=== PATIENT | female | born 1950 | race American Indian/Alaskan Native ===

== ENCOUNTER 2016-12-08 10:32 | Inpatient (IN) | payer MEDICARE ==
--- NOTE | 2016-12-08 10:41 | C.PDOC ---
History Of Present Illness 66 y/o female pmhx HTN, old CVA with no residual deficits presents to the ED with complains of new onset right sided weakness and slurred speech since 0945 this am. Pt woke up at baseline. Pt denies recent trauma, headache, fever, any pain, SOB, vomiting or any other complaints. Family at bedside. Time Seen by Provider: 12/08/16 10:35 Chief Complaint (Nursing): Weakness/Neurological Deficit History Per: Patient History/Exam Limitations: no limitations Onset/Duration Of Symptoms: Mins Current Symptoms Are (Timing): Still Present Fall Associated With With Symptoms: No Recent travel outside of the [place]: No - Symptoms Of CVA Associated Symptoms: Impaired Speech Character Of Deficits: Right: Weakness Recent Head Trauma: No Past Medical History Reviewed: Historical Data, Nursing Documentation, Vital Signs Vital Signs: Last Vital Signs Temp 98.1 F 12/12/16 07:25 Pulse 65 12/12/16 08:00 Resp 18 12/12/16 07:25 BP 138/83 12/12/16 09:58 Pulse Ox 100 12/12/16 07:25 - Medical History PMH: Anxiety, CVA, Fractures, HTN, Hypercholesterolemia Surgical History: Appendectomy - [facility] Procedures CLOSED RED-INT FIX FEMUR (07/16/14) OCCUPATIONAL THERAPY (07/18/14) PHYSICAL THERAPY NEC (07/18/14) RECREATIONAL THERAPY (07/18/14) Family History: States: Unknown Family Hx - Social History Hx Tobacco Use: Yes Hx Alcohol Use: No (Drinks beer 40oz/week) Hx Substance Use: No - Immunization History Hx Tetanus Toxoid Vaccination: No Hx Influenza Vaccination: No Hx Pneumococcal Vaccination: No Review Of Systems Except As Marked, All Systems Reviewed And Found Negative. Constitutional: Negative for: Fever Cardiovascular: Negative for: Chest Pain Respiratory: Negative for: Shortness of Breath Gastrointestinal: Negative for: Vomiting Neurological: Positive for: Weakness (right sided), Change in Speech. Negative for: Headache Physical Exam - Physical Exam Appears: Non-toxic Skin: Normal Color, Warm, Dry Head: Atraumatic, Normacephalic Eye(s): bilateral: Normal Inspection, PERRL, EOMI Nose: Normal Throat: Normal Neck: Normal Cardiovascular: Rhythm Regular Respiratory: Normal Breath Sounds Gastrointestinal/Abdominal: Normal Exam Back: Normal Inspection Extremity: Normal ROM Neurological/Psych: Oriented x3, No Normal Speech, Normal Cognition, Normal Cranial Nerves, No Cerebellar Signs, No Normal Motor, Normal Sensation, Other (( +)slurred speech) ED Course And Treatment - Laboratory Results Result Diagrams: 12/12/16 06:13 12/12/16 06:13 ECG: Interpreted By Me, Viewed By Me ECG Rhythm: Sinus Rhythm Interpretation Of ECG: No ST/T wave changes Rate From EC (BPM) O2 Sat by Pulse Oximetry: 98 (on room air) Pulse Ox Interpretation: Normal - CT Scan/US CT head Other Rad Studies (CT/US): Read By Radiologist, Radiology Report Reviewed CT/US Interpretation: Accession No. : [id number]. Patient Name / ID : AMAURY JJ / [id number]. Exam Date : 12/08/2016 10:43:55 ( Approved ). Study Comment : Sex / Age : F / 66Y. Creator : Modesta Farr MD. Dictator : Modesta Farr MD. Cake Tester : Operations Program Manager : Modesta Farr MD. Approver2 : Report Date : 12/08/2016 11:01:11. My Comment : . PROCEDURE: CT HEAD WITHOUT CONTRAST. HISTORY: Code Stroke. COMPARISON : Noncontrast head CT performed 03/05/14, brain MRI without contrast performed . TECHNIQUE: Axial computed tomography images were obtained through the head/brain without intravenous contrast. Radiation dose: Total exam DLP = 1032.32 mGy-cm. FINDINGS: Streak artifact obscures evaluation of the skullbase. BRAIN: Diffuse atrophy with prominence of the ventricles and sulci noted. No mass effect or edema. 3 mm right hyperdense focus centrum semiovale, punctate hemorrhage is not excluded. Left basal ganglia and bilateral thalamic lacunar infarcts. Ischemic changes re-identified within the dinorah. Moderate scattered periventricular and subcortical white matter hypodensities, which are nonspecific, but often seen with chronic microvascular ischemic disease. VENTRICLES: No hydrocephalus. CALVARIUM: Unremarkable. PARANASAL SINUSES: Unremarkable as visualized. No significant inflammatory changes. MASTOID AIR CELLS: Unremarkable as visualized. No inflammatory changes. OTHER FINDINGS: None. IMPRESSION: 3 mm right centrum semiovale hyperdense focus, punctate hemorrhage is not excluded. If indicated, recommend 6-12 hour follow-up to assess for stability. Left basal ganglia and bilateral thalamic lacunar infarcts. Ischemic changes re-identified within the dinorah. Moderate scattered nonspecific white matter changes. Please note that MRI with diffusion imaging is more sensitive in the detection of acute ischemic event. Findings discussed with Dr. Silva on 12/08/16 at 10:57 a.m. NIHSS Stroke Scale - How Severe is the Stoke Level of Consciousness: 1=Drowsy LOC to Questions: 0=Both comments correct LOC to commands: 0=Obeys both correctly Best Gaze: 0=Normal Visual: 0=No visual loss Facial: 1=Minor asymmetry Motor Arm - Left: 0=No drift Motor Arm - Right: 3=No effort against gravity (falls immediately) Motor Leg - Left: 1=Drift before 5 sec Motor Leg - Right: 2=Falls before 5 sec Limb Ataxia: 0=Absent Sensory: 0=Normal Best Language: 1=Mild to moderate aphasia Dysarthia: 1=Mild to moderate slurring Extinction & Inattention (Neglect): 0=Normal, no object Score: 10 Severity Of Stroke: 5-15= Moderate Stroke rTPA Inclusion/Exclusion - Refusal of Treatment Patient Refused Treatment: No - Inclusion Criteria for Altepase Patient is 18 years or Older: Yes The Clinical Diagnosis of Ischemic Stroke That is Causing a Potentially Disabling Neurological Deficit: No Time of Onset is Well Established to be Less Than 270 Minute Before Treatment Would Begin: Yes Risk/Benefit Discussed With Patient/Family Member Present: Yes - Exclusion Criteria for Altepase Uncontrolled Hypertension at Time of Treatment (Systolic BP above 185 or Diastolic BP above 110 mmHg): Yes Less Than 3 Months Had a Recent: Intracranial Medical Decision Making Medical Decision Making: r/o cva- labs imaging pending Plan: * CT head, CXR * EKG * labs * Iv fluids * UA 1145: noted head ct. case discussed with dr ma- not tpa candidate given possiblity of intracranial bleed. also discussed with dr jacques, no surgical eval, recommend neuro eval. dr hagan accepts to tele. pt also later endrosed to dr hagan that symptoms started 730 am. Disposition - Disposition Disposition: HOSPITALIZED Disposition Time: 15:16 Condition: FAIR - Clinical Impression Clinical Impression: Stroke - Scribe Statement The provider has reviewed the documentation as recorded by the Peyton Vitale Provider Attestation: All medical record entries made by the Peyton were at my direction and personally dictated by me. I have reviewed the chart and agree that the record accurately reflects my personal performance of the history, physical exam, medical decision making, and the department course for this patient. I have also personally directed, reviewed, and agree with the discharge instructions and disposition. Decision To Admit - Pt Status Changed To: Hospital Disposition Of: Inpatient - Admit Certification Admit to Inpatient:: After my assessment, the patient will require hospitalization for at least two midnights. This is because of the severity of symptoms shown, intensity of services needed, and/or the medical risk in this patient being treated as an outpatient. - InPatient: Physician Admission Certification: I certify that this patient requires 2 or more midnights of care for the following reason:: pt with possible stroke, and intracranial bleed. needs mri, neruo eval. - . Bed Request Type: Telemetry Admitting Physician: Lazarus Ray Patient Diagnosis: Stroke
--- NOTE | 2016-12-08 11:04 | CT ---
PROCEDURE: CT HEAD WITHOUT CONTRAST. HISTORY: Code Stroke COMPARISON: Noncontrast head CT performed 03/05/14, brain MRI without contrast performed 03/06/14 TECHNIQUE: Axial computed tomography images were obtained through the head/brain without intravenous contrast. Radiation dose: Total exam DLP = 1032.32 mGy-cm. FINDINGS: Streak artifact obscures evaluation of the skullbase. BRAIN: Diffuse atrophy with prominence of the ventricles and sulci noted. No mass effect or edema. 3 mm right hyperdense focus centrum semiovale, punctate hemorrhage is not excluded. Left basal ganglia and bilateral thalamic lacunar infarcts. Ischemic changes re-identified within the dinorah. Moderate scattered periventricular and subcortical white matter hypodensities, which are nonspecific, but often seen with chronic microvascular ischemic disease. VENTRICLES: No hydrocephalus. CALVARIUM: Unremarkable. PARANASAL SINUSES: Unremarkable as visualized. No significant inflammatory changes. MASTOID AIR CELLS: Unremarkable as visualized. No inflammatory changes. OTHER FINDINGS: None. IMPRESSION: 3 mm right centrum semiovale hyperdense focus, punctate hemorrhage is not excluded. If indicated, recommend 6-12 hour follow-up to assess for stability. Left basal ganglia and bilateral thalamic lacunar infarcts. Ischemic changes re-identified within the dinorah. Moderate scattered nonspecific white matter changes. Please note that MRI with diffusion imaging is more sensitive in the detection of acute ischemic event. Findings discussed with Dr. Silva on 12/08/16 at 10:57 a.m.
[2016-12-08] MEDS ORDERED: niCARdipine IV 25 MG in Sodium Chloride 0.9% 240 ML IV SCH (11:15)
[2016-12-08 11:47] LABS: BASO # 0.1 K/uL (0.0-0.2); EOS # 0.1 K/uL (0.0-0.7); EOS % 1.4 % (0.0-4.0); HEMATOCRIT 40.3 % (34.0-47.0); LYMPH # 2.5 K/uL (1.0-4.3); LYMPH % 30.7 % (20.0-40.0); MEAN CORPUSCULAR HEMOGLOBIN 31.3 pg (27.0-31.0); MEAN CORPUSCULAR HGB CONC 34.4 g/dL (33.0-37.0); MEAN PLATELET VOLUME 8.5 fL (7.2-11.7); MONO # 0.5 K/uL (0.0-0.8); MONO % 6.7 % (0.0-10.0); NRBC % 0.1 % (0.0-2.0); RED CELL DISTRIBUTION WIDTH 13.8 % (11.5-14.5); WHITE BLOOD COUNT 8.2 K/uL (4.8-10.8)
[2016-12-08 11:54] LABS: CHLORIDE 99 mmol/L (98-107)
[2016-12-08 11:55] LABS: SODIUM 142 mmol/L (132-148)
[2016-12-08 11:56] LABS: POTASSIUM 3.2 mmol/L (3.6-5.2)
[2016-12-08 11:58] LABS: ALB/GLOB RATIO 1.1 (1.0-2.1); ALKALINE PHOSPHATASE 61 U/L (38-126); ALT/SGPT 27 U/L (9-52); AST/SGOT 24 U/L (14-36); BILIRUBIN,TOTAL 0.5 mg/dL (0.2-1.3); BLOOD UREA NITROGEN 6 mg/dL (7-17); CALCIUM 9.1 mg/dl (8.6-10.4); CARBON DIOXIDE 31 mmol/L (22-30); CHOLESTEROL 205 mg/dL (0-199); GFR AFRICAN-AMERICAN > 60; GLUCOSE,RANDOM 103 mg/dL (65-105); TOTAL PROTEIN 7.6 g/dL (6.3-8.3)
[2016-12-08 12:09] LABS: URINE BILIRUBIN NEGATIVE (NEGATIVE); URINE BLOOD NEGATIVE (NEGATIVE); URINE COLOR Colorless (YELLOW); URINE GLUCOSE (UA) NORMAL (Normal); URINE KETONE NEGATIVE (NEGATIVE); URINE LEUKOCYTE ESTERASE NEG Leu/uL (Negative); URINE PROTEIN NEGATIVE (NEGATIVE); URINE UROBILINOGEN NORMAL mg/dL (0.2-1.0)
[2016-12-08] MEDS ORDERED: Potassium Chloride 10 mEq 100 ML IVPB ONE ×2 (12:13→12:37)
--- NOTE | 2016-12-08 12:13 | RAD ---
HISTORY: code stroke COMPARISON: Chest x-ray performed 10/18/16 TECHNIQUE: Chest, one view. FINDINGS: Examination limited by habitus and patient obliquity. LUNGS: Mild bibasilar atelectasis. Please note that chest x-ray has limited sensitivity for the detection of pulmonary masses. PLEURA: Possible trace left pleural effusion. No definite pneumothorax . CARDIOVASCULAR: Heart size appears within normal limits. Mild aortic ectasia. Right peritracheal opacity suspected to reflect tortuous vasculature exaggerated by patient obliquity. OSSEOUS STRUCTURES: No acute osseous abnormality identified. VISUALIZED UPPER ABDOMEN: Unremarkable. OTHER FINDINGS: None. IMPRESSION: Mild bibasilar atelectasis. Possible trace left pleural effusion. Additional findings as above.
--- NOTE | 2016-12-08 13:05 | CP.PCM.HP ---
History of Present Illness - History of Present Illness History of Present Illness: CC: new onset right sided weakness and slurred speech since 944 this am. HPI: 66 y/o -[place] female with pmhx HTN, 4x prior CVA with no residual deficits - presents to the ED with complains of new onset right sided weakness and slurred speech since 944 this am. Per daughter, the patient woke up at base line at 7am and was able to walk/talk normally at full capcaity. At 9 :45am, she noticed her mother with slurred speech and fell when attempting to get up to walk over to her. Following this fall, the patient was able to get up , however her right arm and leg were "heavy and weak." The patient was brought in via EMS. Pt denies trauma due to the fall, denies hitting her head, headache , fever, any pain, SOB, vomiting or any other complaints. Daughter at bedside. In the ED, our patient fell within the window period of TPA, however due to abnormal CAT scan, she was disqualified. MRI of the brain, which confirmed that she did have a left thalamic stroke. Speech and Right sided weakness improved while in the ED for several hours, however not to baseline. PMHx: Hypertension, hypercholesterolemia, history of 4 prior strokes between [id number] (no deficits), right knee surgery PSHx: Appendectomy, closed reduction internal fixation of L femur 2013, R knee surgery Meds: Metoprolol 25mg PO BID (denies any other home meds) Allergies: ibuprofen FamHx: unknown SocHx: Denies smoking or alcohol use. PMD: Dr. Villalba Present on Admission - Present on Admission Any Indicators Present on Admission: No History of DVT/PE: No History of Uncontrolled Diabetes: No Review of Systems - Constitutional Constitutional: Weakness. absent: Chills, Fever, Headache - EENT Eyes: absent: Blurred Vision, Change in Vision, Diplopia Nose/Mouth/Throat: absent: Epistaxis, Nasal Congestion, Nasal Discharge - Cardiovascular Cardiovascular: absent: Chest Pain, Chest Pain at Rest, Dyspnea, Leg Edema - Respiratory Respiratory: absent: Cough, Dyspnea, Hemoptysis, Dyspnea on Exertion - Gastrointestinal Gastrointestinal: absent: Abdominal Pain, Belching, Bloating - Genitourinary Genitourinary: absent: Change in Urinary Stream, Difficulty Urinating, Dysuria - Musculoskeletal Musculoskeletal: Abnormal Gait, Muscle Weakness. absent: Numbness, Tingling - Integumentary Integumentary: absent: Alopecia, Bleeding Lesions, Change in Hair - Neurological Neurological: As Per HPI, Abnormal Speech, Dizziness, Weakness. absent: Abnormal Hearing, Confusion, Numbness, Headaches, Paresthesias - Psychiatric Psychiatric: absent: Abnormal Sleep Pattern, Anhedonia, Anxiety - Endocrine Endocrine: absent: Change in Body Appearance, Change in Libido - Hematologic/Lymphatic Hematologic: absent: Easy Bleeding, Easy Bruising, Lymphadenopathy Past Patient History - Infectious Disease Hx of Infectious Diseases: None - Past Medical History & Family History Past Medical History?: Yes - Past Social History Smoking Status: Heavy Smoker > 10 Cigarettes Daily - CARDIAC Hx Hypercholesterolemia: Yes Hx Hypertension: Yes - PULMONARY Hx Respiratory Disorders: No - NEUROLOGICAL HX Cerebrovascular Accident: Yes (x 4) - HEENT Hx HEENT Problems: No - RENAL Hx Chronic Kidney Disease: No - ENDOCRINE/METABOLIC Hx Endocrine Disorders: No - HEMATOLOGICAL/ONCOLOGICAL Hx Blood Disorders: No - INTEGUMENTARY Hx Dermatological Problems: No - MUSCULOSKELETAL/RHEUMATOLOGICAL Hx Fractures: Yes - GASTROINTESTINAL Hx Gastrointestinal Disorders: No - GENITOURINARY/GYNECOLOGICAL Hx Genitourinary Disorders: No - PSYCHIATRIC Hx Anxiety: Yes Hx Substance Use: No - SURGICAL HISTORY Hx Appendectomy: Yes - ANESTHESIA Hx Anesthesia: Yes Hx Anesthesia Reactions: No Meds Allergies/Adverse Reactions: Allergies Allergy/AdvReac Type Severity Reaction Status Date / Time ibuprofen [From Motrin] Allergy Verified 12/08/16 10:38 flu shot Allergy Intermediate Uncoded 12/08/16 10:38 Physical Exam - Constitutional Appears: Non-toxic, No Acute Distress - Head Exam Head Exam: ATRAUMATIC, NORMAL INSPECTION - Eye Exam Eye Exam: EOMI, Normal appearance, PERRL - ENT Exam ENT Exam: Mucous Membranes Moist - Neck Exam Neck exam: Positive for: Full Rom. Negative for: Tenderness - Respiratory Exam Respiratory Exam: Clear to Auscultation Bilateral, NORMAL BREATHING PATTERN. absent: Wheezes - Cardiovascular Exam Cardiovascular Exam: REGULAR RHYTHM, +S1, +S2 - GI/Abdominal Exam GI & Abdominal Exam: Normal Bowel Sounds, Soft. absent: Tenderness - Extremities Exam Extremities exam: Positive for: normal inspection. Negative for: pedal edema, tenderness - Back Exam Back exam: NORMAL INSPECTION - Neurological Exam Neurological exam: Alert, CN II-XII Intact, Motor Sensory Deficit, Oriented x3 Additional comments: DTF: Right side hyperreflexic, left side is 1+. Plantars are upgoing on both sides. Decreased sensation on Right sided face, right arm, and right leg. Level of Consciousness: 1=Drowsy LOC to Questions: 0=Both comments correct LOC to commands: 0=Obeys both correctly Best Gaze: 0=Normal Visual: 0=No visual loss Facial: 1=Minor asymmetry Motor Arm - Left: 0=No drift Motor Arm - Right: 3=No effort against gravity (falls immediately) Motor Leg - Left: 1=Drift before 5 sec Motor Leg - Right: 2=Falls before 5 sec Limb Ataxia: 0=Absent Sensory: 0=Normal Best Language: 1=Mild to moderate aphasia Dysarthia: 1=Mild to moderate slurring Extinction & Inattention (Neglect): 0=Normal, no object Score: 10 - Psychiatric Exam Psychiatric exam: Flat Affect, Normal Mood - Skin Skin Exam: Dry, Intact, Normal Color, Warm Results - Vital Signs Recent Vital Signs: Last Vital Signs Temp 98.4 F 12/08/16 10:33 Pulse 79 12/08/16 12:30 Resp 20 12/08/16 12:30 BP 170/86 H 12/08/16 12:30 Pulse Ox 98 12/08/16 12:45 - Labs Result Diagrams: 12/08/16 11:41 12/08/16 11:41 Assessment & Plan - Assessment and Plan (Free Text) Assessment: Contacts: Chiquis (daughter) [phone]; Kenzie (son) [phone] Stroke, acute -MRI head with diffusion - acute or subacute lacunar infarct in lateral aspect of L thalamus. Severe chronic microvascular dz. see full report. -CT head w/o contrast 12/08 - 3 mm right centrum semiovale hyperdense focus, punctate hemorrhage is not excluded. Left basal ganglia and bilateral thalamic lacunar infarcts. Ischemic changes re-identified within the dinorah. Moderate scattered nonspecific white matter changes. -recommend 6-12 hour follow-up to assess for stability. -Please note that MRI with diffusion imaging is more sensitive in the detection of acute ischemic event. -EKG - nsr -In ED: case discussed with dr ma. intracranil bleed less likely, however not tpa candidate given low likelihood. also discussed with dr jacques, agrees punctate hemorrhage less likely, no surgical eval, recommend neuro eval. dr hagan accepts to tele -Neurology Consult, Dr. Ma, f/u recs -Start Plavix 75mg daily, ecotrin 81mg daily (ASA 325 not effective), Tricor low dose. -Cardiology Consult, Dr. Hi Carmona, f/u recs -f/u echo -f/u carotid dopplers Neurochecks Q4 NIHSS Stroke Scale Level of Consciousness: 1=Drowsy LOC to Questions: 0=Both comments correct LOC to commands: 0=Obeys both correctly Best Gaze: 0=Normal Visual: 0=No visual loss Facial: 1=Minor asymmetry Motor Arm - Left: 0=No drift Motor Arm - Right: 3=No effort against gravity (falls immediately) Motor Leg - Left: 1=Drift before 5 sec Motor Leg - Right: 2=Falls before 5 sec Limb Ataxia: 0=Absent Sensory: 0=Normal Best Language: 1=Mild to moderate aphasia Dysarthia: 1=Mild to moderate slurring Extinction & Inattention (Neglect): 0=Normal, no object Score: 10 Hypertriglyceridemia -Neurology Consult, Dr. Ma, f/alicia recs -> start Low dose Tricor. -Cardiology Consult, Dr. Hi Carmona, f/u recs -Crestor 10mg HS. -Triglyc 179 -Cholest 205, LDL 122, HDL 47 HTN Resume home med Metoprolol 25mg PO BID -Call PMD Dr. Villalba regarding additional medications for HTN and CVA reduction ( why not on ASA?). Prophylaxis SCDs Pepcid 20mg PO daily HOLD heparin Physical therapy. - Date & Time Date: 12/08/16 Time: 13:10
--- NOTE | 2016-12-08 14:15 | MRI ---
PROCEDURE: MRI BRAIN WITHOUT CONTRAST HISTORY: r/o cva COMPARISON: 03/06/2014 MRI TECHNIQUE: Multiplanar, multisequence MR images of the brain were obtained without intravenous contrast enhancement. FINDINGS: HEMORRHAGE: None DWI: There is a faintly visible acute or subacute infarct in the lateral aspect of the left thalamus seen on diffusion image 20 series 4 and confirmed on ADC image 20 series 401. This is not visible on the FLAIR or T2 images. Chronic lacunar infarcts are seen in both thalami and basal ganglia. Severe chronic microvascular changes are seen in the periventricular white matter. BRAIN PARENCHYMA: As above VENTRICLES: Unremarkable. No hydrocephalus. CRANIUM: Unremarkable. ORBITS: Grossly unremarkable. PARANASAL SINUSES/MASTOIDS: Clear VASCULAR SYSTEM: Skull base flow voids intact. OTHER FINDINGS: None. IMPRESSION: Severe chronic microvascular disease in the periventricular white matter, thalami and basal ganglia. There is an acute or subacute lacunar infarct in the lateral aspect of the left thalamus on diffusion imaging
--- NOTE | 2016-12-08 18:58 | CON ---
DATE: 12/08/2016 The patient's room 665, bed B. REASON FOR CONSULTATION: Stroke. CHIEF COMPLAINT: The patient was brought into [facility] with slurred speech and right-sided we akness. From neurological point of view, I was called in to evaluate her for the problem. Initially, they discussed about the case for TPA administration because the patient came in within th e window. At that time, a CT of the head was reported as a punctate bleed that was documented. Cons idering this, the TPA was not given. HISTORY OF PRESENT ILLNESS: The patient is a 66-year-old right-handed -[place] female in her usual state of health. This morning around 9:45 being witnessed with slurred speech and fell from t he bed. Following this, the patient was able to get up and she was dragging her right leg. Speech w as garbled. Immediately 911 was called. The patient was brought in. In the Emergency Room, patient was presenting with right lateral gaze preponderance with right-sided weakness with speech impaired. Though patient fell within the window period of TPA, because of the abnormal CAT scan, the patient was disqualified. The patient did go for MRI of the brain, which confirmed that she did have a left thalamic stroke. Luckily, patient's present symptoms were improved, her speech regained and weakness is also somewhat improved. PAST MEDICAL HISTORY: Hypertension, hypercholesterolemia, history of stroke 3 years ago, left hip re placement, right knee surgery. PERSONAL HISTORY: Denies smoking or alcohol use. ALLERGIES: No known allergies. REVIEW OF SYSTEMS: As per H and P. MEDICATIONS: Crestor, aspirin, Lopressor, Tricor. PHYSICAL EXAMINATION: VITAL SIGNS: Blood pressure 164/94, mean arterial pressure 117, respiratory rate 16, temperature afe brile. NECK: Supple. No carotid bruit. HEART: Sounds regular. CHEST: Fair air entry. EXTREMITIES: No edema in legs. NEUROLOGIC EXAMINATION: MENTAL STATUS EXAMINATION: She is awake, alert. Speech is hypophonic. Naming and repetition is a p roblem. She follows 1-step commands. Mild right and left confusion. CRANIAL NERVES: Visual field, mild deficit on the right hemispheric field. Pupils react to light. Extraocular movements are normal. No nystagmus, no facial sensory deficit. Facial asymmetry manifes ting as a flattening of the right nasolabial fold. Hearing is normal. Tongue is midline. MOTOR: Significant right arm pronator drift noted. Right leg is also weak. She was not able to scotty p her leg against gravity in a sustained manner. DEEP TENDON REFLEXES: Right side hyperreflexic, left side is 1+. Plantars are upgoing on both sides . SENSORY: Decreased pain and temperature on the right side compared to the left side. COORDINATION: Agssmv-or-hidv test, dysmetria, proportionate to her weakness noted on the right side. CONCLUSION: Upon reviewing her history and neurologic examination, the patient is presenting with le ft subcortical dysfunction manifesting with speech impairment, visual impairment and right hemiparesi s with cortical sensory deficit. This is probably small vessel disease secondary to her risk factors including hypertension and dyslipidemia with a history of previous stroke. WORKUP: MRI of the brain as discussed, left thalamic stroke and basal ganglia stroke with periventri cular ischemic changes consistent with small vessel disease. Blood workup, WBC 8.2, hemoglobin 15.8, hematocrit 48.3, platelet 223. PT 11.6, INR 1.0, PTT 30. So dium 142, potassium 3.2, chloride 99, bicarbonate 31, BUN 6, creatinine 0.5, hemoglobin A1c 6.1. Cho lesterol 205, triglycerides 179, LDL 122. RECOMMENDATIONS: 1. Carotid Doppler. 2. Echocardiogram. 3. Blood workup as per the order. 4. The patient should have aspirin and Plavix because of the aspirin failure. The patient should have a cardiology consult as well. DVT prophylaxis, getting out of the bed and ph ysical therapy. If patient is stable for next 24-hour period, the patient can be discharged to rehab ilitation. Considering her risk factors, patient should have polysomnogram to rule out sleep related breathing disorder that can be done as outpatient. Jackson Orr MD cc: [id number] TT: 12/08/2016 18:58:27 Confirmation # [id number] Dictation # [id number] chris
[2016-12-09 06:10] LABS: BASO # 0.1 K/uL (0.0-0.2); BASO % 0.9 % (0.0-2.0); EOS # 0.1 K/uL (0.0-0.7); EOS % 1.8 % (0.0-4.0); HEMATOCRIT 41.2 % (34.0-47.0); LYMPH # 2.3 K/uL (1.0-4.3); LYMPH % 33.1 % (20.0-40.0); MEAN CELL VOLUME 91.8 fL (81.0-99.0); MEAN CORPUSCULAR HEMOGLOBIN 30.5 pg (27.0-31.0); MEAN CORPUSCULAR HGB CONC 33.2 g/dL (33.0-37.0); MEAN PLATELET VOLUME 8.5 fL (7.2-11.7); MONO # 0.6 K/uL (0.0-0.8); RED CELL DISTRIBUTION WIDTH 13.7 % (11.5-14.5); WHITE BLOOD COUNT 6.9 K/uL (4.8-10.8)
[2016-12-09 06:17] LABS: CHLORIDE 100 mmol/L (98-107); POTASSIUM 3.2 mmol/L (3.6-5.2); SODIUM 141 mmol/L (132-148)
[2016-12-09 06:19] LABS: ALB/GLOB RATIO 1.2 (1.0-2.1); ALKALINE PHOSPHATASE 62 U/L (38-126); AST/SGOT 24 U/L (14-36); BILIRUBIN,TOTAL 0.7 mg/dL (0.2-1.3); BLOOD UREA NITROGEN 7 mg/dL (7-17); CARBON DIOXIDE 28 mmol/L (22-30); GFR AFRICAN-AMERICAN > 60; TOTAL PROTEIN 7.2 g/dL (6.3-8.3)
[2016-12-09 06:20] LABS: ALT/SGPT 22 U/L (9-52); CALCIUM 8.9 mg/dl (8.6-10.4); GLUCOSE,RANDOM 115 mg/dL (65-105); MAGNESIUM 1.7 mg/dL (1.6-2.3); PHOSPHOROUS 4.2 mg/dL (2.5-4.5)
--- NOTE | 2016-12-09 09:20 | PN ---
DATE: 12/09/2016 NEUROLOGICAL PROBLEM: Right hemiparesis. That is secondary to left thalamic infarct. PHYSICAL EXAMINATION: VITAL SIGNS: Blood pressure 154/90, mean arterial pressure of 111, respiratory rate 16, temperature 98.4, pulse rate is 60, regular. NEUROLOGIC: The patient is more awake, alert, oriented to person and place. She denies any new weak ness. Mild right hemiparesis is still present. Rest of the examination is unchanged. WORKUP: MRI of the brain confirmed that she did have acute stroke on her left thalamic region. This is probably small vessel disease. RECOMMENDATIONS: Continue 2 antiplatelets with fenofibrate and Crestor. The patient can continue be ta blockers for now. The patient should get out of the bed with physical therapy and if all workup is completed including echocardiogram and carotid Doppler, the patient is set to go to subacute rehabilitation. Jackson Orr MD cc: [id number] TT: 12/09/2016 09:19:38 Confirmation # [id number] Dictation # [id number]
[2016-12-09] MEDS ORDERED: Potassium Chloride 20 mEq/15 ml LIQ UD PO ONE ×2 (09:57→11:45)
--- NOTE | 2016-12-09 11:53 | CP.PCM.PN ---
Subjective - Date & Time of Evaluation Date of Evaluation: 12/09/16 Time of Evaluation: 11:52 - Subjective Subjective: CONSULT DONE. CVA AND HYPERTENSIVE HEART DIS. CT ASA AND PLAVIX. LOSARTAN 50MG ADDED FOR HTN. Objective - Vital Signs/Intake and Output Vital Signs (last 24 hours): Temp Pulse Resp BP Pulse Ox 98.3 F 69 20 150/89 98 12/09/16 07:00 12/09/16 07:30 12/09/16 07:00 12/09/16 09:53 12/09/16 08:27 Intake and Output: 12/09/16 12/09/16 06:59 18:59 Output Total 700 Balance -700 - Medications Medications: Current Medications Aspirin (Ecotrin) 81 mg PO DAILY [facility] Last Admin: 12/09/16 09:53 Dose: 81 mg Clopidogrel Bisulfate (Plavix) 75 mg PO DAILY [facility] Last Admin: 12/08/16 18:18 Dose: 75 mg Famotidine (Pepcid) 20 mg PO DAILY [facility] Last Admin: 12/09/16 09:53 Dose: 20 mg Fenofibrate (Tricor) 48 mg PO QPM [facility] Last Admin: 12/08/16 18:18 Dose: 48 mg Losartan Potassium (Cozaar) 50 mg PO DAILY [facility] Metoprolol Tartrate (Lopressor) 25 mg PO BID [facility] Last Admin: 12/09/16 09:53 Dose: 25 mg Rosuvastatin Calcium (Crestor) 10 mg PO HS [facility] Last Admin: 12/08/16 21:45 Dose: 10 mg - Labs Labs: 12/09/16 06:02 12/09/16 06:02 PT 11.6 SECONDS (9.7-12.2) 12/08/16 11:41 INR 1.0 12/08/16 11:41 APTT 30 SECONDS (21-34) 12/08/16 11:41
--- NOTE | 2016-12-09 13:03 | CON ---
DATE: 12/09/2016 HISTORY OF PRESENT ILLNESS: This is a 66-year-old black female who was brought to the Emergency Room by daughter. The patient was having sudden episode of slurred speech and right-sided weakness. The patient fell down. The patient was not having any injury. The patient denies having any headache, nausea, vomiting or abdominal pain. No history of chest pain or shortness of breath. REVIEW OF SYSTEMS: CARDIOVASCULAR: Negative for chest pain. RESPIRATORY: Negative for shortness of breath. CENTRAL NERVOUS SYSTEM: Right-sided weakness and fall. No headache, no dizziness. GASTROINTESTINAL: Negative for nausea, vomiting, abdominal pain. PAST MEDICAL HISTORY: History of hypertension. Hypercholesterolemia. The patient has history of 4 strokes in the past without any deficit. The patient has right knee surgery. MEDICATIONS: Metoprolol 25 mg p.o. daily. ALLERGIES: THE PATIENT IS ALLERGIC TO IBUPROFEN. FAMILY HISTORY: No known inherited disease. SOCIAL HISTORY: Denies smoking or alcohol use. The patient's PMD is Dr. Villalba. PHYSICAL EXAMINATION: GENERAL: This is a 66-year-old black female, awake, with slurred speech and dysarthria. Oriented. VITAL SIGNS: Temperature 98.4, pulse 79, respirations 20, and blood pressure 170/86 mmHg on admissio n. At present, blood pressure is 150/89 mmHg. HEENT: Normal. NECK: JVP is flat. Carotids: No bruit. LUNGS: No rales, no wheezing. HEART: S1, S2 normal. No gallop, no murmur. ABDOMEN: Soft, nontender, no organomegaly. CENTRAL NERVOUS SYSTEM: Right-sided weakness present. EXTREMITIES: No edema of the legs. LABORATORY DATA: On admission, EKG was sinus bradycardia. No acute ST-T changes. CT scan of the he ad shows microvascular disease and lacunar infarcts. The patient also has MRI done which shows left- sided lacunar infarct. IMPRESSION: Left cerebrovascular accident with right hemiparesis. Lacunar infarct. Slurred speech. Accelerated hypertension. Possible hypertensive heart disease. SUGGESTIONS: Agree with present management. The patient needs echocardiogram. Control blood pressu re. At present, patient is okay with aspirin and Plavix. Continue other management. Renan Carmona MD cc: [id number] TT: 12/09/2016 13:02:44 Confirmation # [id number] Dictation # [id number] mn
--- NOTE | 2016-12-09 17:22 | VASCLAB ---
PROCEDURE: HISTORY: Acute stroke COMPARISON: None available. TECHNIQUE: Grayscale and duplex Doppler evaluation of the cervical carotid and vertebral arteries were performed. The common carotid, carotid bifurcations and cervical Internal Carotid Artery (ICA) and proximal External Carotid Artery (ECA) were evaluated. The vertebral arteries were evaluated for gross patency and flow direction. Report prepared by Yony Marion, BS, RVT FINDINGS: RIGHT CAROTID ARTERIES: 1. Common Carotid Artery: No significant focal plaque formation of the right common carotid artery. Maximum Peak Systolic velocity: 78 cm/sec: End-diastolic velocity 15 cm/sec. 2. Carotid Bifurcation: plaque formation. Maximum Peak Systolic velocity: 52 cm/sec: End-diastolic velocity 11 cm/sec. 3. Internal Carotid Artery: Minimal plaque formation of the right proximal ICA which does not result in hemodynamically significant stenosis. Plaque description: Homogeneous 3.1. Proximal Segment: Peak systolic velocity 54 cm/sec: End-diastolic velocity 15 cm/sec - % stenosis 0-15% 3.2. Middle Segment: Peak systolic velocity 94 cm/sec: End-diastolic velocity 25 cm/sec - % stenosis 0-15% 3.3. Distal Segment: Peak systolic velocity 99 cm/sec: End-diastolic velocity 30 cm/sec - % stenosis 0-15% 4. External Carotid Artery: No significant focal plaque formation. Peak systolic velocity 62 cm/sec 5. ICA/CCA Ratio: 1.3 LEFT CAROTID ARTERIES: 1. Common Carotid Artery: No significant focal plaque formation of the left common carotid artery. Maximum Peak Systolic velocity: 66 cm/sec: End-diastolic velocity 14 cm/sec. 2. Carotid Bifurcation: plaque formation. Maximum Peak Systolic velocity: 62 cm/sec: End-diastolic velocity 12 cm/sec. 3. Internal Carotid Artery: Minimal plaque formation of the left proximal ICA which does not result in hemodynamically significant stenosis. Plaque description: Homogeneous 3.1. Proximal Segment: Peak systolic velocity 62 cm/sec: End-diastolic velocity 17 cm/sec - % stenosis 0-15% 3.2. Middle Segment: Peak systolic velocity 112 cm/sec: End-diastolic velocity 22 cm/sec - % stenosis 0-15% 3.3. Distal Segment: Peak systolic velocity 67 cm/sec: End-diastolic velocity 17 cm/sec - % stenosis 0-15% 4. External Carotid Artery: No significant focal plaque formation. Peak systolic velocity 62 cm/sec 5. ICA/CCA Ratio: 1.7 VERTEBRAL ARTERIES: 1. Right Vertebral Artery: The right vertebral artery flow direction is antegrade. 2. Left Vertebral Artery: The left vertebral artery flow direction is antegrade. OTHER FINDINGS: 1. Right Brachial Blood pressure: 164 mmHg. 2. Left Brachial Blood pressure: 164 mmHg. IMPRESSION: RIGHT: Duplex scan does not suggest hemodynamically significant stenosis of the right extracranial carotid arteries. LEFT: Duplex scan does not suggest hemodynamically significant stenosis of the left extracranial carotid arteries.
--- NOTE | 2016-12-09 18:12 | CP.PCM.PN ---
Subjective - Date & Time of Evaluation Date of Evaluation: 12/09/16 Time of Evaluation: 08:20 - Subjective Subjective: PGY1 Medicine Note - Dr. Umaña. Patient seen and examined at bedside. No overnight events per nursing. Patient reports she is feeling better, however patient remains mildly aphasic, word finding noted. Slurred speech persists, however improving. Right arm strength and left leg strength are also improved today. Pt was in the afternoon during a meal. Pt reported that she wants regular food to eat. Denies f/c, headache, palpitations, SOB, n/v, d/c, or any additional complaints. Objective - Vital Signs/Intake and Output Vital Signs (last 24 hours): Temp Pulse Resp BP Pulse Ox 98.2 F 57 L 20 151/91 H 100 12/09/16 16:00 12/09/16 16:13 12/09/16 16:00 12/09/16 16:00 12/09/16 16:00 Intake and Output: 12/09/16 12/09/16 06:59 18:59 Intake Total 520 Output Total 700 350 Balance -700 170 - Medications Medications: Current Medications Aspirin (Ecotrin) 81 mg PO DAILY [facility] Last Admin: 12/09/16 09:53 Dose: 81 mg Clopidogrel Bisulfate (Plavix) 75 mg PO DAILY [facility] Last Admin: 12/09/16 09:50 Dose: 75 mg Famotidine (Pepcid) 20 mg PO DAILY [facility] Last Admin: 12/09/16 09:53 Dose: 20 mg Fenofibrate (Tricor) 48 mg PO QPM [facility] Last Admin: 12/08/16 18:18 Dose: 48 mg Losartan Potassium (Cozaar) 50 mg PO DAILY [facility] Last Admin: 12/09/16 11:59 Dose: 50 mg Metoprolol Tartrate (Lopressor) 25 mg PO BID [facility] Last Admin: 12/09/16 09:53 Dose: 25 mg Rosuvastatin Calcium (Crestor) 5 mg PO HS [facility] - Labs Labs: 12/09/16 06:02 12/09/16 06:02 PT 11.6 SECONDS (9.7-12.2) 12/08/16 11:41 INR 1.0 12/08/16 11:41 APTT 30 SECONDS (21-34) 12/08/16 11:41 - Additional Findings Additional findings: - Constitutional Appears: Non-toxic, No Acute Distress - Head Exam Head Exam: ATRAUMATIC, NORMAL INSPECTION - Eye Exam Eye Exam: EOMI, Normal appearance, PERRL - ENT Exam ENT Exam: Mucous Membranes Moist - Neck Exam Neck exam: Positive for: Full Rom. Negative for: Tenderness - Respiratory Exam Respiratory Exam: Clear to Auscultation Bilateral, NORMAL BREATHING PATTERN. absent: Wheezes - Cardiovascular Exam Cardiovascular Exam: REGULAR RHYTHM, +S1, +S2 - GI/Abdominal Exam GI & Abdominal Exam: Normal Bowel Sounds, Soft. absent: Tenderness - Extremities Exam Extremities exam: Positive for: normal inspection. Negative for: pedal edema, tenderness - Back Exam Back exam: NORMAL INSPECTION - Neurological Exam Neurological exam: Alert, CN II-XII Intact, Motor Sensory Deficit, Oriented x3 Additional comments: Less drowsy. Mild aphasia, mild slurring. Right sided weakness/muscle strength improving. Right sided sensory deficit improving. Can raise right arm and right leg, however tires easily. If R leg or R arm are raised by examiner then let go , patients arm/leg will drop before 5seconds. - Psychiatric Exam Psychiatric exam: Flat Affect, Normal Mood - Skin Skin Exam: Dry, Intact, Normal Color, Warm Assessment and Plan - Assessment and Plan (Free Text) Assessment: Contacts: Chiquis (daughter) [phone]; Kenzie (son) [phone] Stroke, acute 12/09: f/u echo (pending read) -Carotid dopplers 12/08: Negative -MRI head with diffusion - acute or subacute lacunar infarct in lateral aspect of L thalamus. Severe chronic microvascular dz. see full report. -CT head w/o contrast 12/08 - 3 mm right centrum semiovale hyperdense focus, punctate hemorrhage is not excluded. Left basal ganglia and bilateral thalamic lacunar infarcts. Ischemic changes re-identified within the dinorah. Moderate scattered nonspecific white matter changes. -recommend 6-12 hour follow-up to assess for stability. -Please note that MRI with diffusion imaging is more sensitive in the detection of acute ischemic event. -EKG - nsr -In ED: case discussed with dr ma. intracranil bleed less likely, however not tpa candidate given low likelihood. also discussed with dr jacques, agrees punctate hemorrhage less likely, no surgical eval, recommend neuro eval. dr mugni accepts to tele -Neurology Consult, Dr. Ma, f/u recs -Start Plavix 75mg daily, ecotrin 81mg daily (ASA 325 not effective), Tricor low dose. -Cardiology Consult, Dr. Hi Carmona, f/u recs Neurochecks Q4 Hypertriglyceridemia -Neurology Consult, Dr. Ma f/u recs -> start Low dose Tricor. -Cardiology Consult, Dr. Hi Carmona, f/u recs -Crestor 5mg HS. -Triglyc 179 -Cholest 205, LDL 122, HDL 47 HTN -Cardiology Consult, Dr. Hi Carmona, f/u recs LOSARTAN 50MG ADDED FOR HTN (12/09) Resume home med Metoprolol 25mg PO BID -f/u PMD Dr. Villalba regarding additional medications for HTN and CVA reduction ( why not on ASA?). Electrolyte Imbalance -Hypokalemia, K3.2 - monitor and replete Prophylaxis SCDs Pepcid 20mg PO daily HOLD heparin Mendez D/C'd 12/09 Physical therapy -> rec [facility] vs ARU. Case aware. Speech/Swallow: tolerating soft foods and thin liquids safely at this time - advanced bite size/thin liquids
[2016-12-10 06:36] LABS: BASO % 0.6 % (0.0-2.0); EOS # 0.1 K/uL (0.0-0.7); EOS % 1.9 % (0.0-4.0); HEMATOCRIT 40.5 % (34.0-47.0); LYMPH # 2.4 K/uL (1.0-4.3); MEAN CELL VOLUME 91.4 fL (81.0-99.0); MEAN CORPUSCULAR HEMOGLOBIN 30.4 pg (27.0-31.0); MEAN CORPUSCULAR HGB CONC 33.2 g/dL (33.0-37.0); MEAN PLATELET VOLUME 8.8 fL (7.2-11.7); MONO # 0.6 K/uL (0.0-0.8); RED CELL DISTRIBUTION WIDTH 13.4 % (11.5-14.5); WHITE BLOOD COUNT 6.4 K/uL (4.8-10.8)
[2016-12-10 06:42] LABS: CHLORIDE 100 mmol/L (98-107); SODIUM 139 mmol/L (132-148)
[2016-12-10 06:43] LABS: POTASSIUM 3.9 mmol/L (3.6-5.2)
[2016-12-10 06:45] LABS: ALKALINE PHOSPHATASE 56 U/L (38-126); ALT/SGPT 27 U/L (9-52); AST/SGOT 26 U/L (14-36); BILIRUBIN,TOTAL 0.9 mg/dL (0.2-1.3); BLOOD UREA NITROGEN 10 mg/dL (7-17); CARBON DIOXIDE 29 mmol/L (22-30); GFR AFRICAN-AMERICAN > 60; GLUCOSE,RANDOM 95 mg/dL (65-105); PHOSPHOROUS 3.9 mg/dL (2.5-4.5); TOTAL PROTEIN 7.1 g/dL (6.3-8.3)
[2016-12-10 06:46] LABS: CALCIUM 8.9 mg/dl (8.6-10.4); MAGNESIUM 1.6 mg/dL (1.6-2.3)
--- NOTE | 2016-12-10 08:13 | CP.PCM.PN ---
Subjective - Date & Time of Evaluation Date of Evaluation: 12/10/16 Time of Evaluation: 09:02 - Subjective Subjective: Internal medicine progress note for Dr. Rob Vilchis, PGY-1 Pt S & E at bedside. Pt only complaint is food is bad, does not like to eat it. Denies N/V/F/C, SOB , CP, abdominal pain, LE pain/swelling. Is sleeping ok. Objective - Vital Signs/Intake and Output Vital Signs (last 24 hours): Temp Pulse Resp BP Pulse Ox 98.7 F 61 20 145/81 98 12/10/16 07:51 12/10/16 07:51 12/10/16 07:51 12/10/16 07:51 12/10/16 07:51 - Medications Medications: Current Medications Aspirin (Ecotrin) 81 mg PO DAILY [facility] Last Admin: 12/09/16 09:53 Dose: 81 mg Clopidogrel Bisulfate (Plavix) 75 mg PO DAILY [facility] Last Admin: 12/09/16 09:50 Dose: 75 mg Famotidine (Pepcid) 20 mg PO DAILY [facility] Last Admin: 12/09/16 09:53 Dose: 20 mg Fenofibrate (Tricor) 48 mg PO QPM [facility] Last Admin: 12/09/16 18:24 Dose: 48 mg Losartan Potassium (Cozaar) 50 mg PO DAILY [facility] Last Admin: 12/09/16 11:59 Dose: 50 mg Metoprolol Tartrate (Lopressor) 25 mg PO BID [facility] Last Admin: 12/09/16 18:24 Dose: 25 mg Rosuvastatin Calcium (Crestor) 5 mg PO HS [facility] Last Admin: 12/09/16 21:52 Dose: 5 mg - Labs Labs: 12/10/16 05:45 12/10/16 05:30 PT 11.6 SECONDS (9.7-12.2) 12/08/16 11:41 INR 1.0 12/08/16 11:41 APTT 30 SECONDS (21-34) 12/08/16 11:41 - Constitutional Appears: Non-toxic, No Acute Distress - Head Exam Head Exam: ATRAUMATIC, NORMAL INSPECTION, NORMOCEPHALIC - Eye Exam Eye Exam: EOMI, Normal appearance, PERRL Pupil Exam: NORMAL ACCOMODATION, PERRL - ENT Exam ENT Exam: Mucous Membranes Moist, Normal Exam - Neck Exam Neck Exam: Full ROM, Normal Inspection - Respiratory Exam Respiratory Exam: Clear to Ausculation Bilateral, NORMAL BREATHING PATTERN. absent: Accessory Muscle Use, Chest Wall Tenderness, Decreased Breath Sounds, Rales, Rhonchi, Wheezes - Cardiovascular Exam Cardiovascular Exam: REGULAR RHYTHM, +S1, +S2 - GI/Abdominal Exam GI & Abdominal Exam: Soft, Normal Bowel Sounds. absent: Tenderness - Extremities Exam Extremities Exam: Normal Inspection. absent: Pedal Edema, Tenderness - Neurological Exam Neurological Exam: Alert, Awake, CN II-XII Intact, Oriented x3 - Psychiatric Exam Psychiatric exam: Normal Affect, Normal Mood - Skin Skin Exam: Dry, Intact, Normal Color, Warm Assessment and Plan - Assessment and Plan (Free Text) Assessment: Stroke, acute 12/09: f/u echo (pending read still) -Carotid dopplers 12/08: Negative -MRI head with diffusion - acute or subacute lacunar infarct in lateral aspect of L thalamus. Severe chronic microvascular dz. see full report. -CT head w/o contrast 12/08 - 3 mm right centrum semiovale hyperdense focus, punctate hemorrhage is not excluded. Left basal ganglia and bilateral thalamic lacunar infarcts. Ischemic changes re-identified within the dinorah. Moderate scattered nonspecific white matter changes. -recommend 6-12 hour follow-up to assess for stability. -Please note that MRI with diffusion imaging is more sensitive in the detection of acute ischemic event. -EKG - nsr -In ED: case discussed with dr ma. intracranial bleed less likely, however not tpa candidate given low likelihood. also discussed with Dr jacques, agrees punctate hemorrhage less likely, no surgical eval, recommend neuro eval. dr hagan accepts to tele -Neurology Consult, Dr. Ma, f/u recs -Start Plavix 75mg daily, ecotrin 81mg daily (ASA 325 not effective), Tricor low dose. -Cardiology Consult, Dr. Hi Carmona f/u recs Neurochecks Q4 Hypertriglyceridemia -Neurology Consult, Dr. Ma f/u recs -> start Low dose Tricor. -Cardiology Consult, Dr. Hi Carmona f/u recs -Crestor 5mg HS. -Triglyc 179 -Cholest 205, LDL 122, HDL 47 HTN -Cardiology Consult, Dr. Hi Carmona f/u recs LOSARTAN 50MG ADDED FOR HTN (3/17) Resume home med Metoprolol 25mg PO BID -f/u PMD Dr. Villalba regarding additional medications for HTN and CVA reduction ( why not on ASA?). Electrolyte Imbalance -Hypokalemia - resolved Prophylaxis SCDs Pepcid 20mg PO daily HOLDING heparin Physical therapy -> rec [facility] vs ARU. Case aware. Speech/Swallow: tolerating soft foods and thin liquids safely at this time - advanced bite size/thin liquids
--- NOTE | 2016-12-10 11:21 | CP.PCM.PN ---
Subjective - Date & Time of Evaluation Date of Evaluation: 12/10/16 Time of Evaluation: 11:19 - Subjective Subjective: FEELS BETTER. SPEECH IMPROVING. RT SIDE WEAKNESS. BP CONTROLLED. Objective - Vital Signs/Intake and Output Vital Signs (last 24 hours): Temp Pulse Resp BP Pulse Ox 98.7 F 61 20 145/80 98 12/10/16 07:51 12/10/16 07:51 12/10/16 07:51 12/10/16 09:17 12/10/16 07:51 Intake and Output: 12/10/16 12/10/16 06:59 18:59 Intake Total 120 Balance 120 - Medications Medications: Current Medications Aspirin (Ecotrin) 81 mg PO DAILY [facility] Last Admin: 12/10/16 09:17 Dose: 81 mg Clopidogrel Bisulfate (Plavix) 75 mg PO DAILY [facility] Last Admin: 12/10/16 09:18 Dose: 75 mg Famotidine (Pepcid) 20 mg PO DAILY [facility] Last Admin: 12/10/16 09:17 Dose: 20 mg Fenofibrate (Tricor) 48 mg PO QPM [facility] Last Admin: 12/09/16 18:24 Dose: 48 mg Losartan Potassium (Cozaar) 50 mg PO DAILY [facility] Last Admin: 12/10/16 09:17 Dose: 50 mg Metoprolol Tartrate (Lopressor) 25 mg PO BID [facility] Last Admin: 12/10/16 09:17 Dose: 25 mg Rosuvastatin Calcium (Crestor) 5 mg PO HS [facility] Last Admin: 12/09/16 21:52 Dose: 5 mg - Labs Labs: 12/10/16 05:45 12/10/16 05:30 PT 11.6 SECONDS (9.7-12.2) 12/08/16 11:41 INR 1.0 12/08/16 11:41 APTT 30 SECONDS (21-34) 12/08/16 11:41 - Constitutional Appears: No Acute Distress, Chronically Ill - Eye Exam Eye Exam: Normal appearance, PERRL - ENT Exam ENT Exam: Normal Exam - Respiratory Exam Respiratory Exam: Clear to Ausculation Bilateral, NORMAL BREATHING PATTERN - Cardiovascular Exam Cardiovascular Exam: REGULAR RHYTHM, +S1, +S2 - GI/Abdominal Exam GI & Abdominal Exam: Soft, Normal Bowel Sounds - Extremities Exam Extremities Exam: Full ROM, Normal Capillary Refill, Normal Inspection. absent : Joint Swelling, Pedal Edema - Back Exam Back Exam: NORMAL INSPECTION - Neurological Exam Neurological Exam: Alert, Awake, CN II-XII Intact, Normal Gait, Oriented x3 - Psychiatric Exam Psychiatric exam: Normal Affect, Normal Mood Assessment and Plan - Assessment and Plan (Free Text) Assessment: HHD. CVA. Plan: CT PRESENT TREATMENT.
--- NOTE | 2016-12-10 16:58 | CARD ---
APPROVED REPORT EXAM: Two-dimensional and M-mode echocardiogram with Doppler and color Doppler. Other Information Quality : GoodRhythm : INDICATION CVA/TIA RISK FACTORS Hypertension Hyperlipidemia M-Mode DIMENSIONS RVDd1.40 (2.1-3.2cm)Left Atrium (MM)2.19 (2.5-4.0cm) IVSd1.00 (0.7-1.1cm)Aortic Root2.67 (2.2-3.7cm) LVDd3.83 (4.0-5.6cm)Aortic Cusp Exc.1.94 (1.5-2.0cm) PWd0.91 (0.7-1.1cm)FS (%) 48 % LVDs1.97 (2.0-3.8cm)LVEF (%)80 (>50%) Mitral Valve MV E Yxdcylmx51.0cm/sMV A Avroomwx36.5cm/sE/A ratio0.9 TDI E/Lateral E'0.0E/Medial E'0.0 Tricuspid Valve TR Peak [id number]/sTR Peak Gr.[id number] LEFT VENTRICLE The left ventricle is normal size. There is normal left ventricular wall thickness. The left ventricular function is normal. The left ventricular ejection fraction is within the normal range. No regional wall motion abnormalities noted. Transmitral Doppler flow pattern is Grade I-abnormal relaxation pattern. No left ventricle thrombus noted on this study. There is no ventricular septal defect visualized. There is no left ventricular aneurysm. There is no mass noted in the left ventricle. RIGHT VENTRICLE The right ventricle is normal size. There is normal right ventricular wall thickness. The right ventricular systolic function is normal. ATRIA The left atrium size is normal. The right atrium size is normal. The interatrial septum is intact with no evidence for an atrial septal defect. AORTIC VALVE The aortic valve is normal in structure and function. No aortic regurgitation is present. There is no aortic valvular stenosis. There is no aortic valvular vegetation. MITRAL VALVE The mitral valve is normal in structure and function. There is no evidence of mitral valve prolapse. There is no mitral valve stenosis. There is no mitral valve regurgitation noted. TRICUSPID VALVE The tricuspid valve is normal in structure and function. There is trace tricuspid regurgitation. There is no tricuspid valve prolapse or vegetation. There is no tricuspid valve stenosis. PULMONIC VALVE The pulmonary valve is normal in structure and function. There is no pulmonic valvular regurgitation. There is no pulmonic valvular stenosis. GREAT VESSELS The aortic root is normal in size. The ascending aorta is normal in size. The pulmonary artery is normal. The IVC is normal in size and collapses >50% with inspiration. PERICARDIAL EFFUSION The pericardium appears normal. There is no pleural effusion. <Conclusion> The left ventricular ejection fraction is within the normal range. Transmitral Doppler flow pattern is Grade I-abnormal relaxation pattern. There is trace tricuspid regurgitation.
[2016-12-11 06:59] LABS: CHLORIDE 97 mmol/L (98-107); SODIUM 139 mmol/L (132-148)
[2016-12-11 07:00] LABS: POTASSIUM 4.1 mmol/L (3.6-5.2)
[2016-12-11 07:02] LABS: ALB/GLOB RATIO 1.2 (1.0-2.1); ALKALINE PHOSPHATASE 55 U/L (38-126); AST/SGOT 23 U/L (14-36); BILIRUBIN,TOTAL 0.6 mg/dL (0.2-1.3); BLOOD UREA NITROGEN 15 mg/dL (7-17); CARBON DIOXIDE 30 mmol/L (22-30); GFR AFRICAN-AMERICAN > 60; GLUCOSE,RANDOM 109 mg/dL (65-105); PHOSPHOROUS 3.8 mg/dL (2.5-4.5); TOTAL PROTEIN 6.9 g/dL (6.3-8.3)
[2016-12-11 07:06] LABS: BASO % 0.6 % (0.0-2.0); EOS # 0.1 K/uL (0.0-0.7); EOS % 1.8 % (0.0-4.0); HEMATOCRIT 40.3 % (34.0-47.0); LYMPH # 2.7 K/uL (1.0-4.3); LYMPH % 39.7 % (20.0-40.0); MEAN CELL VOLUME 91.4 fL (81.0-99.0); MEAN CORPUSCULAR HEMOGLOBIN 30.8 pg (27.0-31.0); MEAN CORPUSCULAR HGB CONC 33.7 g/dL (33.0-37.0); MEAN PLATELET VOLUME 8.5 fL (7.2-11.7); MONO # 0.6 K/uL (0.0-0.8); MONO % 8.7 % (0.0-10.0); RED CELL DISTRIBUTION WIDTH 13.1 % (11.5-14.5); WHITE BLOOD COUNT 6.7 K/uL (4.8-10.8)
[2016-12-11 08:17] LABS: ALT/SGPT 18 U/L (9-52); CALCIUM 8.8 mg/dl (8.6-10.4); MAGNESIUM 1.7 mg/dL (1.6-2.3)
--- NOTE | 2016-12-11 09:21 | CARD ---
APPROVED REPORT EKG Measurement Heart [id number] CO [id number] <Conclusion> Normal sinus rhythm Nonspecific T wave abnormality Abnormal ECG
--- NOTE | 2016-12-11 09:59 | CP.PCM.PN ---
Subjective - Date & Time of Evaluation Date of Evaluation: 12/11/16 Time of Evaluation: 08:35 - Subjective Subjective: Medical Attending Note: Follow-up: Acute left thalamic stroke, hyperlipidemia patient seen this morning. Patient in good spirits. Per nursing, slurring has improved. Patient is awake, alert, oriented X3. patient denies acute complaints. Objective - Vital Signs/Intake and Output Vital Signs (last 24 hours): Temp Pulse Resp BP Pulse Ox 98.1 F 57 L 20 134/81 100 12/11/16 08:31 12/11/16 08:31 12/11/16 08:31 12/11/16 09:35 12/11/16 08:31 - Medications Medications: Current Medications Aspirin (Ecotrin) 81 mg PO DAILY [facility] Last Admin: 12/11/16 09:37 Dose: 81 mg Clopidogrel Bisulfate (Plavix) 75 mg PO DAILY [facility] Last Admin: 12/11/16 09:38 Dose: 75 mg Famotidine (Pepcid) 20 mg PO DAILY [facility] Last Admin: 12/11/16 09:37 Dose: 20 mg Fenofibrate (Tricor) 48 mg PO QPM [facility] Last Admin: 12/10/16 17:57 Dose: 48 mg Heparin Sodium (Porcine) (Heparin) 5,000 units SC Q8 [facility] Losartan Potassium (Cozaar) 50 mg PO DAILY [facility] Last Admin: 12/11/16 09:38 Dose: 50 mg Metoprolol Tartrate (Lopressor) 25 mg PO BID [facility] Last Admin: 12/11/16 09:35 Dose: 25 mg Rosuvastatin Calcium (Crestor) 5 mg PO HS [facility] Last Admin: 12/10/16 22:00 Dose: 5 mg - Labs Labs: 12/11/16 06:00 12/11/16 06:00 PT 11.6 SECONDS (9.7-12.2) 12/08/16 11:41 INR 1.0 12/08/16 11:41 APTT 30 SECONDS (21-34) 12/08/16 11:41 - Constitutional Appears: Non-toxic, No Acute Distress - Head Exam Head Exam: NORMAL INSPECTION - Eye Exam Eye Exam: EOMI - ENT Exam ENT Exam: Mucous Membranes Dry - Respiratory Exam Respiratory Exam: Clear to Ausculation Bilateral, NORMAL BREATHING PATTERN. absent: Rales, Rhonchi, Wheezes - Cardiovascular Exam Cardiovascular Exam: REGULAR RHYTHM, +S1, +S2 - GI/Abdominal Exam GI & Abdominal Exam: Soft, Normal Bowel Sounds. absent: Distended, Guarding, Rigid, Tenderness, Rebound - Extremities Exam Extremities Exam: absent: Pedal Edema, Tenderness - Neurological Exam Neurological Exam: Alert, Awake, CN II-XII Intact (except CN 1, 8 not tested), Oriented x3 - Psychiatric Exam Psychiatric exam: Normal Affect, Normal Mood - Skin Skin Exam: Dry, Normal Color, Warm Assessment and Plan (1) Acute lacunar stroke Assessment & Plan: * Admit on telemetry * Neurology (Dr. Orr) on board-->help appreciated * Cardiology (Dr. Hi Carmona) on board-->help appreciated * Aspirin 81mg Po daily (tolerated, no reported side effects) * Plavix 75mg Po daily * Crestor 5mg PO qHS * Tricor 48mg PO QPM * Cozaar 50mg PO daily * Lopressor 25mg PO bid * Patient denies muscle soreness complaints. * Echo (12/10/16): left ventricular ejection fraction is within the normal ranger , grade 1 abnormal relaxation, trace tricupside regurgitation * Cartoid doppler (12/09/16): normal * Brain MRI (12/08/16): severe chronic microvascular disease in the periventricular white matter, thalami, and basal ganglia, acute or subacute lacunar infarct in the lateral aspect of the left thalamus on diffusion imaging * head CT (12/08/16): 3 mm right centrum semiovale hyperdense focus, punctate hemorrhage is not excluded, left basal ganglia nad bilateral thamalmic lacunar infarcts, ischemic changes re-identified within the dinorah * [id number] * T, Chol: 205, LDL: 122, HDL: 47 * PT eval: ARU/JANETTE * Occupational therapy: screen appropriate * JANETTE eval Status: Acute (2) Hypercholesteremia Assessment & Plan: * TGL 179, Chol: 205, LDL: 122, HDL: 47 * Crestor 5mg PO qHS * Tricor 48mg PO QPM Status: Chronic (3) Hypertension Assessment & Plan: * Cozaar 50mg PO daily * Lopressor 25mg PO bid * monitor vital signs and adjust accordingly Status: Chronic (4) Prophylactic measure Assessment & Plan: * PT/OT eval * Pureed diet * Heparin 5000 units subq 8 hours for DVT ppx * Pepcid 20mg PO bid for GI ppx Status: Acute
[2016-12-11] MEDS ORDERED: POLYETHYLENE GLYCOL 3350 17 GM/Dose PACKET PO ONE (10:45)
--- NOTE | 2016-12-11 16:40 | CP.PCM.PN ---
Subjective - Date & Time of Evaluation Date of Evaluation: 12/11/16 Time of Evaluation: 12:00 - Subjective Subjective: S/P CVA. HHD. STABLE CARDIAC CONDITION. Objective - Vital Signs/Intake and Output Vital Signs (last 24 hours): Temp Pulse Resp BP Pulse Ox 98.1 F 57 L 20 134/81 100 12/11/16 08:31 12/11/16 08:31 12/11/16 08:31 12/11/16 09:35 12/11/16 11:55 Intake and Output: 12/11/16 12/11/16 06:59 18:59 Intake Total 480 Balance 480 - Medications Medications: Current Medications Aspirin (Ecotrin) 81 mg PO DAILY [facility] Last Admin: 12/11/16 09:37 Dose: 81 mg Clopidogrel Bisulfate (Plavix) 75 mg PO DAILY [facility] Last Admin: 12/11/16 09:38 Dose: 75 mg Famotidine (Pepcid) 20 mg PO BID [facility] Fenofibrate (Tricor) 48 mg PO QPM [facility] Last Admin: 12/10/16 17:57 Dose: 48 mg Heparin Sodium (Porcine) (Heparin) 5,000 units SC Q8 [facility] Last Admin: 12/11/16 13:29 Dose: 5,000 units Losartan Potassium (Cozaar) 50 mg PO DAILY [facility] Last Admin: 12/11/16 09:38 Dose: 50 mg Metoprolol Tartrate (Lopressor) 25 mg PO BID [facility] Last Admin: 12/11/16 09:35 Dose: 25 mg Rosuvastatin Calcium (Crestor) 5 mg PO HS [facility] Last Admin: 12/10/16 22:00 Dose: 5 mg - Labs Labs: 12/11/16 06:00 12/11/16 06:00 PT 11.6 SECONDS (9.7-12.2) 12/08/16 11:41 INR 1.0 12/08/16 11:41 APTT 30 SECONDS (21-34) 12/08/16 11:41 - Constitutional Appears: Non-toxic, No Acute Distress, Chronically Ill - Eye Exam Eye Exam: Normal appearance, PERRL - ENT Exam ENT Exam: Normal Exam - Respiratory Exam Respiratory Exam: Clear to Ausculation Bilateral - Cardiovascular Exam Cardiovascular Exam: REGULAR RHYTHM, +S1, +S2 - GI/Abdominal Exam GI & Abdominal Exam: Soft, Normal Bowel Sounds - Extremities Exam Extremities Exam: Full ROM, Normal Capillary Refill, Normal Inspection. absent : Joint Swelling, Pedal Edema - Neurological Exam Neurological Exam: Alert, Awake, CN II-XII Intact, Oriented x3. absent: Normal Gait - Psychiatric Exam Psychiatric exam: Normal Affect, Normal Mood Assessment and Plan - Assessment and Plan (Free Text) Assessment: CVA Plan: CT PRESENT TREATMENT.
[2016-12-12 06:42] LABS: CHLORIDE 98 mmol/L (98-107)
[2016-12-12 06:43] LABS: POTASSIUM 4.1 mmol/L (3.6-5.2); SODIUM 139 mmol/L (132-148)
[2016-12-12 06:45] LABS: ALB/GLOB RATIO 1.2 (1.0-2.1); ALKALINE PHOSPHATASE 56 U/L (38-126); AST/SGOT 27 U/L (14-36); BILIRUBIN,TOTAL 0.6 mg/dL (0.2-1.3); BLOOD UREA NITROGEN 13 mg/dL (7-17); CARBON DIOXIDE 29 mmol/L (22-30); GFR AFRICAN-AMERICAN > 60; GLUCOSE,RANDOM 102 mg/dL (65-105); TOTAL PROTEIN 6.9 g/dL (6.3-8.3)
[2016-12-12 06:46] LABS: ALT/SGPT 15 U/L (9-52); CALCIUM 8.7 mg/dl (8.6-10.4); MAGNESIUM 1.7 mg/dL (1.6-2.3); PHOSPHOROUS 3.7 mg/dL (2.5-4.5)
[2016-12-12 06:51] LABS: BASO % 0.6 % (0.0-2.0); EOS # 0.1 K/uL (0.0-0.7); EOS % 1.8 % (0.0-4.0); HEMATOCRIT 39.2 % (34.0-47.0); LYMPH # 2.9 K/uL (1.0-4.3); LYMPH % 47.1 % (20.0-40.0); MEAN CELL VOLUME 91.6 fL (81.0-99.0); MEAN CORPUSCULAR HEMOGLOBIN 31.3 pg (27.0-31.0); MEAN CORPUSCULAR HGB CONC 34.2 g/dL (33.0-37.0); MEAN PLATELET VOLUME 8.5 fL (7.2-11.7); MONO # 0.5 K/uL (0.0-0.8); MONO % 8.9 % (0.0-10.0); NRBC % 0.1 % (0.0-2.0); RED CELL DISTRIBUTION WIDTH 13.4 % (11.5-14.5); WHITE BLOOD COUNT 6.1 K/uL (4.8-10.8)
--- NOTE | 2016-12-12 09:05 | CP.PCM.PN ---
Subjective - Date & Time of Evaluation Date of Evaluation: 12/12/16 Time of Evaluation: 07:30 - Subjective Subjective: PGY1 Medicine Note - Dr. Crane Patient seen and examined at bedside. No overnight events per nursing. Patient reports she is feeling better, however patient remains mildly aphasic, word finding noted. Slurred speech persists, however improving. Right arm strength and left leg strength fatigue easily today, not grossly improved. Tolerating diet. Denies f/c, headache, palpitations, SOB, n/v, d/c, or any additional complaints. Objective - Vital Signs/Intake and Output Vital Signs (last 24 hours): Temp Pulse Resp BP Pulse Ox 98.1 F 65 18 138/82 100 12/12/16 07:25 12/12/16 08:00 12/12/16 07:25 12/12/16 07:25 12/12/16 07:25 Intake and Output: 12/12/16 12/12/16 06:59 18:59 Intake Total 120 Balance 120 - Medications Medications: Current Medications Aspirin (Ecotrin) [address] [facility] Last Admin: 12/11/16 09:37 Dose: 81 mg Clopidogrel Bisulfate (Plavix) [address] [facility] Last Admin: 12/11/16 09:38 Dose: 75 mg Famotidine (Pepcid) [address] [facility] Last Admin: 12/11/16 18:10 Dose: 20 mg Fenofibrate (Tricor) [address] [facility] Last Admin: 12/11/16 18:10 Dose: 48 mg Heparin Sodium (Porcine) (Heparin) 5,[address] [facility] Last Admin: 12/12/16 05:52 Dose: 5,000 units Losartan Potassium (Cozaar) [address] [facility] Last Admin: 12/11/16 09:38 Dose: 50 mg Metoprolol Tartrate (Lopressor) [address] [facility] Last Admin: 12/11/16 18:08 Dose: Not Given Rosuvastatin Calcium (Crestor) [address] [facility] Last Admin: 12/11/16 22:00 Dose: 5 mg - Labs Labs: 12/12/16 06:13 12/12/16 06:13 PT 11.6 SECONDS (9.7-12.2) 12/08/16 11:41 INR 1.0 12/08/16 11:41 APTT 30 SECONDS (21-34) 12/08/16 11:41 - Additional Findings Additional findings: - Constitutional Appears: Non-toxic, No Acute Distress - Head Exam Head Exam: NORMAL INSPECTION - Eye Exam Eye Exam: EOMI - ENT Exam ENT Exam: Mucous Membranes Dry - Respiratory Exam Respiratory Exam: Clear to Ausculation Bilateral, NORMAL BREATHING PATTERN. absent: Rales, Rhonchi, Wheezes - Cardiovascular Exam Cardiovascular Exam: REGULAR RHYTHM, +S1, +S2 - GI/Abdominal Exam GI & Abdominal Exam: Soft, Normal Bowel Sounds. absent: Distended, Guarding, Rigid, Tenderness, Rebound - Extremities Exam Extremities Exam: absent: Pedal Edema, Tenderness - Neurological Exam Neurological Exam: Alert, Awake, CN II-XII Intact (except CN 1 not tested), Oriented x3 Mild aphasia, mild slurring. Right sided weakness/muscle strength same, not improved. Right sided sensory deficit grossly resolved. Can raise right arm and right leg, however tires easily. If R leg or R arm are raised by examiner then let go, patients arm/leg will drops before 5seconds. - Psychiatric Exam Psychiatric exam: Normal Affect, Normal Mood - Skin Skin Exam: Dry, Normal Color, Warm Assessment and Plan - Assessment and Plan (Free Text) Assessment: (1) Acute lacunar stroke Assessment & Plan: * Admit on telemetry * Neurology (Dr. Orr) on board-->help appreciated * Cardiology (Dr. Hi Carmona) on board-->help appreciated * Aspirin 81mg Po daily (tolerated, no reported side effects) * Plavix 75mg Po daily * Crestor 5mg PO qHS * Tricor 48mg PO QPM * Cozaar 50mg PO daily * Lopressor 25mg PO bid * Patient denies muscle soreness complaints. * Echo (12/10/16): left ventricular ejection fraction is within the normal ranger , grade 1 abnormal relaxation, trace tricupside regurgitation * Cartoid doppler (12/09/16): normal * Brain MRI (12/08/16): severe chronic microvascular disease in the periventricular white matter, thalami, and basal ganglia, acute or subacute lacunar infarct in the lateral aspect of the left thalamus on diffusion imaging * head CT (12/08/16): 3 mm right centrum semiovale hyperdense focus, punctate hemorrhage is not excluded, left basal ganglia nad bilateral thamalmic lacunar infarcts, ischemic changes re-identified within the dinorah * [id number] * T, Chol: 205, LDL: 122, HDL: 47 * PT eval: ARU/JANETTE * Occupational therapy: screen appropriate * JANETTE eval Status: Acute (2) Hypercholesteremia Assessment & Plan: * TGL 179, Chol: 205, LDL: 122, HDL: 47 * Crestor 5mg PO qHS * Tricor 48mg PO QPM Status: Chronic (3) Hypertension Assessment & Plan: * Cozaar 50mg PO daily * Lopressor 25mg PO bid * monitor vital signs and adjust accordingly Status: Chronic (4) Prophylactic measure Assessment & Plan: * PT/OT eval -> rec JANETTE vs ARU. Case aware. * Pureed diet -> advanced bite size/thin liquids * Heparin 5000 units subq 8 hours for DVT ppx * Pepcid 20mg PO bid for GI ppx Status: Acute
--- NOTE | 2016-12-12 11:50 | CP.PCM.PN ---
Subjective - Date & Time of Evaluation Date of Evaluation: 12/12/16 Time of Evaluation: 11:49 - Subjective Subjective: CARDIAC STABLE. S/P CVA. HHD. Objective - Vital Signs/Intake and Output Vital Signs (last 24 hours): Temp Pulse Resp BP Pulse Ox 98.1 F 65 18 138/83 98 12/12/16 07:25 12/12/16 08:00 12/12/16 07:25 12/12/16 09:58 12/12/16 11:32 Intake and Output: 12/12/16 12/12/16 06:59 18:59 Intake Total 120 Balance 120 - Medications Medications: Current Medications Aspirin (Ecotrin) 81 mg PO DAILY [facility] Last Admin: 12/12/16 09:58 Dose: 81 mg Clopidogrel Bisulfate (Plavix) 75 mg PO DAILY [facility] Last Admin: 12/12/16 09:58 Dose: 75 mg Famotidine (Pepcid) 20 mg PO BID [facility] Last Admin: 12/12/16 09:58 Dose: 20 mg Fenofibrate (Tricor) 48 mg PO QPM [facility] Last Admin: 12/11/16 18:10 Dose: 48 mg Heparin Sodium (Porcine) (Heparin) 5,000 units SC Q8 [facility] Last Admin: 12/12/16 05:52 Dose: 5,000 units Losartan Potassium (Cozaar) 50 mg PO DAILY [facility] Last Admin: 12/12/16 09:58 Dose: 50 mg Metoprolol Tartrate (Lopressor) 25 mg PO BID [facility] Last Admin: 12/12/16 09:58 Dose: 25 mg Rosuvastatin Calcium (Crestor) 5 mg PO HS [facility] Last Admin: 12/11/16 22:00 Dose: 5 mg - Labs Labs: 12/12/16 06:13 12/12/16 06:13 PT 11.6 SECONDS (9.7-12.2) 12/08/16 11:41 INR 1.0 12/08/16 11:41 APTT 30 SECONDS (21-34) 12/08/16 11:41 - Constitutional Appears: No Acute Distress, Chronically Ill - Eye Exam Eye Exam: Normal appearance, PERRL - ENT Exam ENT Exam: Normal Exam - Respiratory Exam Respiratory Exam: Clear to Ausculation Bilateral, NORMAL BREATHING PATTERN - Cardiovascular Exam Cardiovascular Exam: REGULAR RHYTHM, +S1, +S2 - GI/Abdominal Exam GI & Abdominal Exam: Soft, Normal Bowel Sounds - Back Exam Back Exam: NORMAL INSPECTION - Neurological Exam Neurological Exam: Alert, Awake, CN II-XII Intact, Normal Gait, Oriented x3 - Psychiatric Exam Psychiatric exam: Normal Affect, Normal Mood Assessment and Plan - Assessment and Plan (Free Text) Assessment: HHD. Plan: CT PRESENT TREATMENT.
[2016-12-12 15:35] VITALS: RESP 20; TEMP 98.3; O2SAT 99
[2016-12-12 16:12] VITALS: PULSE 62
[2016-12-12 17:39] VITALS: BP 175/84
--- NOTE | 2016-12-12 20:33 | CP.PCM.DIS ---
<Faraz Cabrales - Last Filed: 12/12/16 20:33> Provider - Provider Date of Admission: 12/08/16 12:30 Attending physician: Lazarus Ray MD Primary care physician: PMD: Dr. Villalba Consults: Neuro: Dr. Orr Cardio: Dr. Hi Carmona Time Spent in preparation of Discharge (in minutes): 40 Hospital Course - Lab Results Lab Results: Most Recent Lab Values WBC 6.1 K/uL (4.8-10.8) 12/12/16 06:13 RBC 4.29 Mil/uL (3.80-5.20) 12/12/16 06:13 Hgb 13.4 g/dL (11.0-16.0) 12/12/16 06:13 Hct 39.2 % (34.0-47.0) 12/12/16 06:13 MCV 91.6 fL (81.0-99.0) 12/12/16 06:13 MCH 31.3 pg (27.0-31.0) H 12/12/16 06:13 MCHC 34.2 g/dL (33.0-37.0) 12/12/16 06:13 RDW 13.4 % (11.5-14.5) 12/12/16 06:13 Plt Count 176 K/uL (130-400) 12/12/16 06:13 MPV 8.5 fL (7.2-11.7) 12/12/16 06:13 Neut % (Auto) 41.6 % (50.0-75.0) L 12/12/16 06:13 Lymph % (Auto) 47.1 % (20.0-40.0) H 12/12/16 06:13 Woods % (Auto) 8.9 % (0.0-10.0) 12/12/16 06:13 Eos % (Auto) 1.8 % (0.0-4.0) 12/12/16 06:13 Baso % (Auto) 0.6 % (0.0-2.0) 12/12/16 06:13 Neut # 2.5 K/uL (1.8-7.0) 12/12/16 06:13 Lymph # 2.9 K/uL (1.0-4.3) 12/12/16 06:13 Woods # 0.5 K/uL (0.0-0.8) 12/12/16 06:13 Eos # 0.1 K/uL (0.0-0.7) 12/12/16 06:13 Baso # 0.0 K/uL (0.0-0.2) 12/12/16 06:13 PT 11.6 SECONDS (9.7-12.2) 12/08/16 11:41 INR 1.0 12/08/16 11:41 APTT 30 SECONDS (21-34) 12/08/16 11:41 Sodium 139 mmol/L (132-148) 12/12/16 06:13 Potassium 4.1 mmol/L (3.6-5.2) 12/12/16 06:13 Chloride 98 mmol/L (98-107) 12/12/16 06:13 Carbon Dioxide 29 mmol/L (22-30) 12/12/16 06:13 Anion Gap 16 (10-20) 12/12/16 06:13 BUN 13 mg/dL (7-17) 12/12/16 06:13 Creatinine 0.6 MG/DL (0.7-1.2) L 12/12/16 06:13 Est GFR ( Amer) > 60 12/12/16 06:13 Est GFR (Non-Af Amer) > 60 12/12/16 06:13 POC Glucose (mg/dL) 109 mg/dL (65-110) 12/12/16 16:05 Random Glucose 102 mg/dL (65-105) 12/12/16 06:13 Hemoglobin A1c 6.1 % (4.2-6.5) 12/08/16 11:41 Calcium 8.7 mg/dl (8.6-10.4) 12/12/16 06:13 Phosphorus 3.7 mg/dL (2.5-4.5) 12/12/16 06:13 Magnesium 1.7 mg/dL (1.6-2.3) 12/12/16 06:13 Total Bilirubin 0.6 mg/dL (0.2-1.3) 12/12/16 06:13 AST 27 U/L (14-36) 12/12/16 06:13 ALT 15 U/L (9-52) 12/12/16 06:13 Alkaline Phosphatase 56 U/L (38-126) 12/12/16 06:13 Troponin I < 0.0120 ng/mL (0.00-0.120) 12/08/16 11:41 Total Protein 6.9 g/dL (6.3-8.3) 12/12/16 06:13 Albumin 3.8 g/dL (3.5-5.0) 12/12/16 06:13 Globulin 3.1 gm/dL (2.2-3.9) 12/12/16 06:13 Albumin/Globulin Ratio 1.2 (1.0-2.1) 12/12/16 06:13 Triglycerides 179 mg/dL (0-149) H D 12/08/16 11:41 Cholesterol 205 mg/dL (0-199) H 12/08/16 11:41 LDL Cholesterol Direct 122 mg/dL (0-129) 12/08/16 11:41 HDL Cholesterol 47 mg/dL (30-70) 12/08/16 11:41 Urine Color Colorless (YELLOW) 12/08/16 11:55 Urine Clarity Clear (Clear) 12/08/16 11:55 Urine pH 9.0 (5.0-8.0) 12/08/16 11:55 Ur Specific [place] 1.003 (1.003-1.030) 12/08/16 11:55 Urine Protein Negative mg/dL (NEGATIVE) 12/08/16 11:55 Urine Glucose (UA) Normal mg/dL (Normal) 12/08/16 11:55 Urine Ketones Negative mg/dL (NEGATIVE) 12/08/16 11:55 Urine Blood Negative (NEGATIVE) 12/08/16 11:55 Urine Nitrate Negative (NEGATIVE) 12/08/16 11:55 Urine Bilirubin Negative (NEGATIVE) 12/08/16 11:55 Urine Urobilinogen Normal mg/dL (0.2-1.0) 12/08/16 11:55 Ur Leukocyte Esterase Neg Jocelyn/uL (Negative) 12/08/16 11:55 Blood Type A POSITIVE 12/08/16 11:41 Antibody Screen Negative 12/08/16 11:41 - Hospital Course Hospital Course: Upon hospital admission: 66 y/o -[place] female with pmhx HTN, 4x prior CVA with no residual deficits - presents to the ED with complains of new onset right sided weakness and slurred speech since 46 this am. Per daughter, the patient [place] 7am and was able to walk/talk normally at full capcaity. At 9:45am, she noticed her mother with slurred speech and fell when attempting to get up to walk over to her. Following this fall, the patient was able to get up, however her right arm and leg were "heavy and weak." The patient was brought in via EMS. Pt denies trauma due to the fall, denies hitting her head, headache, fever, any pain, SOB, vomiting or any other complaints. Daughter at bedside. In the ED, our patient fell within the window period of TPA, however due to abnormal CAT scan, she was disqualified. MRI of the brain, which confirmed that she did have a left thalamic stroke. Speech and Right sided weakness improved while in the ED for several hours, however not to baseline. PMHx: Hypertension, hypercholesterolemia, history of 4 prior strokes between [id number] (no deficits), right knee surgery PSHx: Appendectomy, closed reduction internal fixation of L femur 2013, R knee surgery Meds: Metoprolol 25mg PO BID (denies any other home meds) Allergies: ibuprofen FamHx: unknown SocHx: Denies smoking or alcohol use. PMD: Dr. Villalba During hospital course, the patient was evaluated and treated for the following : (1) Acute lacunar stroke for which she was Admit on telemetry and consult was placed to Neurology (Dr. Orr) and Cardiology (Dr. Hi Carmona). Patient was started on Aspirin 81mg Po daily (tolerated, no reported side effects), Plavix 75mg Po daily, Crestor 5mg PO qHS, Tricor 48mg PO QPM, Cozaar 50mg PO daily, Lopressor 25mg PO bid. Echo (12/10/16): left ventricular ejection fraction is within the normal ranger, grade 1 abnormal relaxation, trace tricupside regurgitation. Cartoid doppler (12/09/16): normal. Brain MRI (12/08/16): severe chronic microvascular disease in the periventricular white matter, thalami, and basal ganglia, acute or subacute lacunar infarct in the latral aspect of the left thalamus on diffusion imaging. Head CT (12/08/16): 3 mm right centrum semiovale hyperdense focus, punctate hemorrhage is not excluded, left basal ganglia nad bilateral thamalmic lacunar infarcts, ischemic changes re- identified within the dinorah. The following labs were ordered: [id number]:6.1, T, Chol: 205, LDL: 122, HDL: 47. She was also seen by PT and Occupation therapy, recommending JANETTE. (2) Hypercholesteremia for which her blood work showed TGL 179, Chol: 205, LDL: 122, HDL: 47. She was treated with Crestor 5mg PO qHS, Tricor 48mg PO QPM. (3) Hypertension for which she was tx with Cozaar 50mg PO daily and her home med Lopressor 25mg PO bid. During her hospital stay , her overall status improved as described in the physical exam. Her speech became less slurred and she regained some function/strength in her Right arm and Right leg. She will require ongoing rehab for her best chance at recovery. Upon hospital discharge, the patient was provided with the following instructions: Patient to be discharged to subacute rehab for rehabilitation s/p 5th stroke per Dr. Faraz Crane. Patient should take medications at rehab center as directed. Patient should make an appointment and follow up with PMD within one week of discharge from rehab center. Patient should return to ED immediately if symptoms return or worsen. This is a summary of the patient's hospital admission, see chart for comprehensive detail. - Date & Time of H&P Date of H&P: 12/08/16 Time of H&P: 12:53 Discharge Exam - Additional Findings Additional findings: - Constitutional Appears: Non-toxic, No Acute Distress - Head Exam Head Exam: NORMAL INSPECTION - Eye Exam Eye Exam: EOMI - ENT Exam ENT Exam: Mucous Membranes Dry - Respiratory Exam Respiratory Exam: Clear to Ausculation Bilateral, NORMAL BREATHING PATTERN. absent: Rales, Rhonchi, Wheezes - Cardiovascular Exam Cardiovascular Exam: REGULAR RHYTHM, +S1, +S2 - GI/Abdominal Exam GI & Abdominal Exam: Soft, Normal Bowel Sounds. absent: Distended, Guarding, Rigid, Tenderness, Rebound - Extremities Exam Extremities Exam: absent: Pedal Edema, Tenderness - Neurological Exam Neurological Exam: Alert, Awake, CN II-XII Intact (except CN 1 not tested), Oriented x3 Mild aphasia, mild slurring. Right sided weakness/muscle strength same, not improved. Right sided sensory deficit grossly resolved. Can raise right arm and right leg, however tires easily. If R leg or R arm are raised by examiner then let go, patients arm/leg will drops before 5seconds. - Psychiatric Exam Psychiatric exam: Normal Affect, Normal Mood - Skin Skin Exam: Dry, Normal Color, Warm Discharge Plan - Follow Up Plan Condition: FAIR Disposition: REHAB FACILITY/REHAB UNIT Instructions: How to Stop Smoking (DC), Cigarette Smoking and Your Health (GEN) , Hypertension (DC), Stroke (DC) Additional Instructions: Patient to be discharged to subacute rehab for rehabilitation s/p 5th stroke per Dr. Faraz Crane. Patient should take medications at rehab center as directed. Patient should make an appointment and follow up with PMD within one week of discharge from rehab center. Patient should return to ED immediately if symptoms return or worsen. Referrals: Jackson Orr MD [Staff Provider] - Clinical Quality Measures - CQM - Stroke Antithrombotic Prescribed: Yes Anticoagulation Prescribed for Atrial Flutter, Atrial Fibrillation and History of:: Not Applicable Statin prescribed: Yes - CQM - Heart Failure Will be discharged to: Care Home Facility Follow Up Date (must be within 7 days from discharge): 12/19/16 Follow Up Time: 09:00 - Date & Time of Discharge Summary Date of Discharge Summary: 12/12/16 Time of Discharge Summary: 20:40 <Faraz Crane - Last Filed: 12/13/16 07:54> Provider - Provider Date of Admission: 12/08/16 12:30 Attending physician: Lazarus Ray MD Hospital Course - Lab Results Lab Results: Most Recent Lab Values WBC 6.1 K/uL (4.8-10.8) 12/12/16 06:13 RBC 4.29 Mil/uL (3.80-5.20) 12/12/16 06:13 Hgb 13.4 g/dL (11.0-16.0) 12/12/16 06:13 Hct 39.2 % (34.0-47.0) 12/12/16 06:13 MCV 91.6 fL (81.0-99.0) 12/12/16 06:13 MCH 31.3 pg (27.0-31.0) H 12/12/16 06:13 MCHC 34.2 g/dL (33.0-37.0) 12/12/16 06:13 RDW 13.4 % (11.5-14.5) 12/12/16 06:13 Plt Count 176 K/uL (130-400) 12/12/16 06:13 MPV 8.5 fL (7.2-11.7) 12/12/16 06:13 Neut % (Auto) 41.6 % (50.0-75.0) L 12/12/16 06:13 Lymph % (Auto) 47.1 % (20.0-40.0) H 12/12/16 06:13 Woods % (Auto) 8.9 % (0.0-10.0) 12/12/16 06:13 Eos % (Auto) 1.8 % (0.0-4.0) 12/12/16 06:13 Baso % (Auto) 0.6 % (0.0-2.0) 12/12/16 06:13 Neut # 2.5 K/uL (1.8-7.0) 12/12/16 06:13 Lymph # 2.9 K/uL (1.0-4.3) 12/12/16 06:13 Woods # 0.5 K/uL (0.0-0.8) 12/12/16 06:13 Eos # 0.1 K/uL (0.0-0.7) 12/12/16 06:13 Baso # 0.0 K/uL (0.0-0.2) 12/12/16 06:13 PT 11.6 SECONDS (9.7-12.2) 12/08/16 11:41 INR 1.0 12/08/16 11:41 APTT 30 SECONDS (21-34) 12/08/16 11:41 Sodium 139 mmol/L (132-148) 12/12/16 06:13 Potassium 4.1 mmol/L (3.6-5.2) 12/12/16 06:13 Chloride 98 mmol/L (98-107) 12/12/16 06:13 Carbon Dioxide 29 mmol/L (22-30) 12/12/16 06:13 Anion Gap 16 (10-20) 12/12/16 06:13 BUN 13 mg/dL (7-17) 12/12/16 06:13 Creatinine 0.6 MG/DL (0.7-1.2) L 12/12/16 06:13 Est GFR ( Amer) > 60 12/12/16 06:13 Est GFR (Non-Af Amer) > 60 12/12/16 06:13 POC Glucose (mg/dL) 109 mg/dL (65-110) 12/12/16 16:05 Random Glucose 102 mg/dL (65-105) 12/12/16 06:13 Hemoglobin A1c 6.1 % (4.2-6.5) 12/08/16 11:41 Calcium 8.7 mg/dl (8.6-10.4) 12/12/16 06:13 Phosphorus 3.7 mg/dL (2.5-4.5) 12/12/16 06:13 Magnesium 1.7 mg/dL (1.6-2.3) 12/12/16 06:13 Total Bilirubin 0.6 mg/dL (0.2-1.3) 12/12/16 06:13 AST 27 U/L (14-36) 12/12/16 06:13 ALT 15 U/L (9-52) 12/12/16 06:13 Alkaline Phosphatase 56 U/L (38-126) 12/12/16 06:13 Troponin I < 0.0120 ng/mL (0.00-0.120) 12/08/16 11:41 Total Protein 6.9 g/dL (6.3-8.3) 12/12/16 06:13 Albumin 3.8 g/dL (3.5-5.0) 12/12/16 06:13 Globulin 3.1 gm/dL (2.2-3.9) 12/12/16 06:13 Albumin/Globulin Ratio 1.2 (1.0-2.1) 12/12/16 06:13 Triglycerides 179 mg/dL (0-149) H D 12/08/16 11:41 Cholesterol 205 mg/dL (0-199) H 12/08/16 11:41 LDL Cholesterol Direct 122 mg/dL (0-129) 12/08/16 11:41 HDL Cholesterol 47 mg/dL (30-70) 12/08/16 11:41 Urine Color Colorless (YELLOW) 12/08/16 11:55 Urine Clarity Clear (Clear) 12/08/16 11:55 Urine pH 9.0 (5.0-8.0) 12/08/16 11:55 Ur Specific [place] 1.003 (1.003-1.030) 12/08/16 11:55 Urine Protein Negative mg/dL (NEGATIVE) 12/08/16 11:55 Urine Glucose (UA) Normal mg/dL (Normal) 12/08/16 11:55 Urine Ketones Negative mg/dL (NEGATIVE) 12/08/16 11:55 Urine Blood Negative (NEGATIVE) 12/08/16 11:55 Urine Nitrate Negative (NEGATIVE) 12/08/16 11:55 Urine Bilirubin Negative (NEGATIVE) 12/08/16 11:55 Urine Urobilinogen Normal mg/dL (0.2-1.0) 12/08/16 11:55 Ur Leukocyte Esterase Neg Jocelyn/uL (Negative) 12/08/16 11:55 Blood Type A POSITIVE 12/08/16 11:41 Antibody Screen Negative 12/08/16 11:41 Attending/Attestation - Attestation I have personally seen and examined this patient.: Yes I have fully participated in the care of the patient.: Yes I have reviewed all pertinent clinical information, including history, physical exam and plan: Yes Notes (Text): Medical Attending: Patient was seen and examined by me. Agree with the above note by the resident. The patient, as mentioned in previous documentation has had a history of multiple CVAs, the patient unfourtnately this time does have weakness and it has affected predominatly the upper right extremity as well as the lower right extremity. When we saw patient today she could not hold her arm in the air against gravity. Her hand grasping was weak as well. There was also weakness with flexing and extending the right knee as well as weakness with plantar and dorsiflexion of the right foot. She really needs to be on medications including statin, blood pressure control, as well as ASA and Plavix thank you Faraz Crane
== END 2016-12-12 07:40 | DRG 65 ==
LOC: C.ER 10:32 → C.9E 12:30 → C.6T 16:25
PROVIDERS: ADMIT Internal Medicine Nephrology; ATTEND Internal Medicine Nephrology
DX: I63.9 Cerebral infarction, unspecified (principal); G81.91 Hemiplegia, unspecified affecting right dominant side; I10 Essential (primary) hypertension; R47.81 Slurred speech; F17.210 Nicotine dependence, cigarettes, uncomplicated; E78.5 Hyperlipidemia, unspecified; F41.9 Anxiety disorder, unspecified; Z96.642 Presence of left artificial hip joint; Z79.82 Long term (current) use of aspirin; Z86.73 Personal history of transient ischemic attack (TIA), and cerebral infarction without residual deficits; Z88.8 Allergy status to other drugs, medicaments and biological substances

== ENCOUNTER 2017-02-22 16:38 | Emergency (ER) | payer MEDICARE, BC ==
[2017-02-22 18:56] VITALS: TEMP 97.7; O2SAT 98
--- NOTE | 2017-02-22 19:06 | C.PDOC ---
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 Patient states she accidentally tripped and fell on uneven sidewalk and fell onto her bilateral knees and twisted her right ankle. Patient notes she experienced difficulty getting up afterwards, and now presents to the ED for further evaluation. Patient denies head injury, LOC, neck pain, back pain, extremity numbness/ weakness. - HPI Time Seen by Provider: 02/22/17 18:01 Chief Complaint (Nursing): Trauma History Per: Patient History/Exam Limitations: no limitations Onset/Duration Of Symptoms: Hrs Location Of Injury: Right: Ankle, Knee, Left: Knee Additional History Per: Patient - Fall Fall:Prior To Injury: Tripped Past Medical History Reviewed: Historical Data, Nursing Documentation, Vital Signs Vital Signs: Last Vital Signs Temp 97.7 F 02/22/17 18:55 Pulse 66 02/22/17 19:58 Resp 20 02/22/17 19:58 BP 195/93 H 02/22/17 19:58 Pulse Ox 98 02/22/17 20:50 - Medical History PMH: Anxiety, CVA, Fractures, HTN, Hypercholesterolemia Denies: Chronic Kidney Disease Surgical History: Appendectomy - [facility] Procedures CLOSED RED-INT FIX FEMUR (07/16/14) OCCUPATIONAL THERAPY (07/18/14) PHYSICAL THERAPY NEC (07/18/14) RECREATIONAL THERAPY (07/18/14) Family History: States: Unknown Family Hx - Social History Hx Tobacco Use: Yes Hx Alcohol Use: No (Drinks beer 40oz/week) Hx Substance Use: No - Immunization History Hx Tetanus Toxoid Vaccination: No Hx Influenza Vaccination: No Hx Pneumococcal Vaccination: No Review Of Systems Except As Marked, All Systems Reviewed And Found Negative. Musculoskeletal: Positive for: Other (b/l knee pain. R ankle pain ). Negative for: Neck Pain, Back Pain Neurological: Negative for: Weakness, Numbness, Other (head injury ) Physical Exam - Physical Exam Appears: Non-toxic, No Acute Distress Skin: Normal Color, Warm, Dry Head: Atraumatic, Normacephalic Eye(s): bilateral: Normal Inspection Oral Mucosa: Moist Neck: Normal ROM, Supple Chest: Symmetrical, No Deformity, No Tenderness Cardiovascular: Rhythm Regular, No Murmur Respiratory: Normal Breath Sounds, No Rales, No Rhonchi, No Wheezing Gastrointestinal/Abdominal: Soft, No Tenderness, No Guarding, No Rebound Back: Normal Inspection, No Vertebral Tenderness, No Paraspinal Tenderness Extremity: Normal ROM, Tenderness (anterior knees bilaterally, L>R; mild to lateral aspect of left ankle ), Capillary Refill (less than 2 seconds ), No Deformity, No Swelling Neurological/Psych: Oriented x3, Normal Speech, Normal Cognition Gait: With Assistance ED Course And Treatment O2 Sat by Pulse Oximetry: 98 (on RA) Pulse Ox Interpretation: Normal Medical Decision Making Medical Decision Making: The patient was found to have high BP and states she did not take her Losartan. Losartan 50mg given. Ankle XR, Hip/Pelvis XR, and Knee XR ordered, all studies are unremarkable. Patient received Cozaar PO and Ultram PO. On reassessment, patient is resting comfortably, showing no signs of distress and is ambulatory in the ED with the assistance of a cane. Patient is stable for discharge and is advised to follow up with her PMD within 1-2 days for further evaluation. Disposition - Disposition Referrals: Mis Villalba MD [Staff Provider] - Disposition: HOME/ ROUTINE Disposition Time: 19:59 Condition: GOOD Additional Instructions: Follow up with the medical doctor within 1-2 days, Return if worsened Prescriptions: Acetaminophen [Tylenol] 325 mg PO Q6 PRN #30 tab PRN Reason: Pain, Mild (1-3) traMADol [Ultram] 50 mg PO Q6 PRN #20 tab PRN Reason: Pain Instructions: Ankle Sprain (ED), Knee Sprain (ED) - Clinical Impression Clinical Impression: Ankle sprain, Knee contusion - PA / PSYCHOPAEDIC NURSE / Resident Statement MD/DO has reviewed & agrees with the documentation as recorded. - Scribe Statement The provider has reviewed the documentation as recorded by the Scribe (Michelle Carmona) All medical record entries made by the Scribe were at my direction and personally dictated by me. I have reviewed the chart and agree that the record accurately reflects my personal performance of the history, physical exam, medical decision making, and the department course for this patient. I have also personally directed, reviewed, and agree with the discharge instructions and disposition.
[2017-02-22 20:14] VITALS: BP 195/93; PULSE 66; RESP 20
--- NOTE | 2017-02-23 08:20 | RAD ---
PROCEDURE: Left Ankle Radiographs. HISTORY: ankle injury COMPARISON: None FINDINGS: BONES: Normal. No fracture. JOINTS: Normal. No osteoarthritis. Ankle mortise maintained. Talar dome intact SOFT TISSUES: Normal. OTHER FINDINGS: None. IMPRESSION: Normal left ankle radiographs.
--- NOTE | 2017-02-23 09:24 | RAD ---
PROCEDURE: Bilateral Knee Radiographs. HISTORY: fall trauma COMPARISON: None. FINDINGS: BONES: Right Knee: Normal. No fracture. Left Knee: Normal. No fracture. JOINTS: Right Knee: Medial and patellofemoral osteoarthritis. The lateral compartment is preserved. There are no articular erosions. Left knee: Patellofemoral osteoarthritis. There are no articular erosions. SOFT TISSUES: Right Knee: Normal. Left Knee: Normal. JOINT EFFUSION: Right Knee: None. Left Knee: None. OTHER FINDINGS: None. IMPRESSION: Medial and patellofemoral osteoarthritis of the right knee. Patellofemoral osteoarthritis of left knee. No evidence of fracture.
--- NOTE | 2017-02-23 09:28 | RAD ---
PROCEDURE: Left Hip X-ray Radiographs. HISTORY: injury and pain COMPARISON: None. FINDINGS: BONES: No acute fracture. Status post ORIF left intertrochanteric fracture. Orthopedic hardware appears intact. No acute fracture. JOINTS: Normal. SOFT TISSUES: Normal. OTHER FINDINGS: None. IMPRESSION: No acute fracture.
== END 2017-02-22 20:31 | disposition home or self-care (01) ==
LOC: C.ER 16:38
DX: S93.401A Sprain of unspecified ligament of right ankle, initial encounter (principal); S80.02XA Contusion of left knee, initial encounter; S80.01XA Contusion of right knee, initial encounter; W01.0XXA Fall on same level from slipping, tripping and stumbling without subsequent striking against object, initial encounter; Y92.480 Sidewalk as the place of occurrence of the external cause

== ENCOUNTER 2017-10-13 12:43 | Emergency (ER) | payer MEDICARE ==
[2017-10-13 12:47] VITALS: BMI 26.5
--- NOTE | 2017-10-13 13:56 | C.PDOC ---
History Of Present Illness 67-YEAR-OLD FEMALE, IS REFERRED BY VISITING RN FOR HTN. PS RAN OUT OF MEDS IN 2016. NO CP, ROWAN "I FEEL FINE". PS PMD , PENDING TO SCHEDULE APPT W SIMONE VILLALBA EXAM NEG Time Seen by Provider: 10/13/17 13:20 Chief Complaint (Nursing): High Blood Pressure History Per: Patient History/Exam Limitations: no limitations Onset/Duration Of Symptoms: Days Current Symptoms Are (Timing): Still Present Past Medical History Reviewed: Historical Data, Nursing Documentation, Vital Signs Vital Signs: Last Vital Signs Temp 98.8 F 10/13/17 12:49 Pulse 81 10/13/17 12:49 Resp 16 10/13/17 12:49 BP 208/125 H 10/13/17 14:10 Pulse Ox 100 10/13/17 13:57 - Medical History PMH: Anxiety, CVA, Fractures, HTN, Hypercholesterolemia Surgical History: Appendectomy - [facility] Procedures CLOSED RED-INT FIX FEMUR (07/16/14) OCCUPATIONAL THERAPY (07/18/14) PHYSICAL THERAPY NEC (07/18/14) RECREATIONAL THERAPY (07/18/14) Family History: States: No Known Family Hx - Social History Hx Tobacco Use: Yes Hx Alcohol Use: No Hx Substance Use: No - Immunization History Hx Tetanus Toxoid Vaccination: No Hx Influenza Vaccination: No Hx Pneumococcal Vaccination: No Review Of Systems Except As Marked, All Systems Reviewed And Found Negative. Constitutional: Negative for: Fever, Chills Cardiovascular: Negative for: Chest Pain Respiratory: Negative for: Shortness of Breath Gastrointestinal: Negative for: Nausea, Vomiting Musculoskeletal: Negative for: Back Pain Neurological: Negative for: Weakness, Numbness, Headache, Dizziness Physical Exam - Physical Exam Appears: Non-toxic, No Acute Distress Skin: Warm, Dry, No Rash Head: Atraumatic, Normacephalic Eye(s): bilateral: Normal Inspection, PERRL, EOMI Nose: Normal Oral Mucosa: Moist Lips: Normal Appearing Neck: Normal ROM Chest: Symmetrical Cardiovascular: Rhythm Regular, No Murmur Respiratory: Normal Breath Sounds, No Accessory Muscle Use Gastrointestinal/Abdominal: Soft, No Tenderness Extremity: Normal ROM Neurological/Psych: Oriented x3, Normal Speech ED Course And Treatment O2 Sat by Pulse Oximetry: 100 (on RA) Pulse Ox Interpretation: Normal Progress - Re-Evaluation Re-evaluation Note: 10/13/17 13:53 PT W ELEVATED BP SIM TO CURRENT VALUE ON PRIOR ER VISITS. UNCONTROLL HTN ASYMPT - Data Reviewed Data Reviewed: Old records Disposition Counseled Patient/Family Regarding: Diagnosis, Need For Followup, Rx Given - Disposition Referrals: Mis Villalba MD [Staff Provider] - Disposition: HOME/ ROUTINE Disposition Time: 13:54 Condition: IMPROVED Prescriptions: Clopidogrel [Plavix] 75 mg PO DAILY #14 tab Losartan [Cozaar] 1 tab PO DAILY #30 tab Metoprolol Succinate [Toprol XL] 25 mg PO BID #28 tab Instructions: Hypertension (ED) Forms: [employer] (Polish) - Clinical Impression Clinical Impression: Hypertension - Scribe Statement The provider has reviewed the documentation as recorded by the Scribe (Obdulia Tijerina) All medical record entries made by the Scribe were at my direction and personally dictated by me. I have reviewed the chart and agree that the record accurately reflects my personal performance of the history, physical exam, medical decision making, and the department course for this patient. I have also personally directed, reviewed, and agree with the discharge instructions and disposition.
[2017-10-13 14:44] VITALS: BP 208/118; PULSE 65; RESP 18; TEMP 98
[2017-10-13 14:47] VITALS: O2SAT 100
== END 2017-10-13 14:55 | disposition home or self-care (01) ==
LOC: C.ER 12:43
DX: I10 Essential (primary) hypertension (principal)